=== PATIENT | female | born 1955 | race Caucasian/White ===

== ENCOUNTER 2021-08-26 08:15 | Outpatient (CLI) | payer MEDICARE, MEDICAID, SELFPAY ==
--- NOTE | ~2021-08-26 | MM_ITS ---
EXAMINATION: MM screening lois BI w kristen HISTORY: Screening TECHNIQUE: Craniocaudal and mediolateral oblique 3-D tomosynthesis images were obtained and synthetic 2-D images were generated. CAD analysis was submitted and interpreted. COMPARISON: No prior mammogram is available for comparison at this institution. BREAST PARENCHYMAL COMPOSITION: There are scattered areas of fibroglandular density. FINDINGS: There is no evidence of suspicious mass, calcification, or architectural distortion to sugg est malignancy in either breast. There has been no suspicious interval change. IMPRESSION: 1. No mammographic evidence of malignancy. 2. Recommend routine screening mammography in one year. BI-RADS Category 1: Negative Reviewed, dictated and finalized at location A. SCRAPER
== END 2021-08-26 08:16 | disposition home or self-care (01) ==
LOC: CHSIMG 08:19
PROVIDERS: PCP Family Medicine; Visit Provider Family Medicine
DX: Z12.31 Encounter for screening mammogram for malignant neoplasm of breast (principal)
CPT/HCPCS: 77063; 77067

== ENCOUNTER 2021-10-01 09:48 | Outpatient (CLI) | payer MEDICARE, MEDICAID, SELFPAY ==
--- NOTE | ~2021-10-01 | CT_ITS ---
EXAMINATION: CT diagnostic chest wo con DATE: 10/01/2021 10:10 INDICATION: Chronic cough, history of lung cancer TECHNIQUE: Computed tomography (CT) of the chest was performed without intravenous contrast. The dose -length product (DLP) was 125.41 mGy-cm. Automated exposure control and iterative reconstruction tech nique were employed. COMPARISON: None FINDINGS: There is volume loss in the right lung. There is confluent perihilar opacification and bron chiectasis in the right lung, most extensive in the middle and lower lobes. An approximately 2.3 cm g roundglass nodule peripheral aspect of the right lower lobe on image 83 demonstrates a 5 mm internal solid component. There are additional groundglass nodules without solid components are seen throughou t the right lung. There is no pleural effusion or pneumothorax. The heart size is normal. There is mo derate thoracic spondylosis. There is a 13 mm cyst of the right hepatic lobe. Healed bilateral drill operator pneumatic ior rib fractures are noted. IMPRESSION: 1. Confluent perihilar opacification and bronchiectasis in the right lung, consistent with malignancy and treatment change. 2. Groundglass nodules of the right lung, one of which demonstrates a 5 mm solid component. Findings may reflect infection/inflammation however malignancy could have a similar appearance. Comparison wit h outside hospital imaging (presumed to be available given treatment for lung cancer) would be most b eneficial. In the absence of available prior imaging, follow-up CT in 3-6 months would be recommended . Reviewed, dictated and finalized at location B. IMPRESSION: 1. Confluent perihilar opacification and bronchiectasis in the right lung, cons istent with malignancy and treatment change. 2. Groundglass nodules of the right lung, one of which demonstrates a 5 mm audrey d component. Findings may reflect infection/inflammation however malignancy cou ld have a similar appearance. Comparison with outside hospital imaging (presume d to be available given treatment for lung cancer) would be most beneficial. In the absence of available prior imaging, follow-up CT in 3-6 months would be re commended.
== END 2021-10-01 09:49 | disposition home or self-care (01) ==
LOC: CHSIMG 09:50
PROVIDERS: PCP Family Medicine; Visit Provider Family Medicine
DX: R05.3 Chronic cough (principal)
CPT/HCPCS: 71250

== ENCOUNTER 2021-10-15 00:53 | Day surgery (SDC) | payer MEDICARE, MEDICAID, SELFPAY ==
[2021-10-07 10:27] VITALS: BMI 20.6
--- NOTE | 2021-10-07 10:45 | PC.NURSE ---
Report to the Outpatient Waiting Room, entrance under the green pavilion located off [facility], at time ___0615____ on date ___10/15/21____. OR Time: __0815 . - You and your visitor will be asked a series of questions to screen for COVID 19 for your protection. - A mask is required within the hospital. Preoperative COVID Testing Requirements: NONE No COVID Test needed if: (proof is required; if not received patient will have Rapid Test prior to entry) - Patient has received COVID Vaccine at least 14 days prior to procedure date or - Patient has positive COVID test result within last 90 days of surgery date. COVID Test needed if above criteria is not met If not COVID vaccinated a COVID test must be conducted within 72 hours of surgery and patient is asked to isolate self from time of testing until procedure. You will go to the [facility] for your COVID testing. The [facility] site is located at the corner of [address] [facility]. You will only be called if COVID results are positive and your surgeon may reschedule your elective surgery date. Patients may have clear liquids (water, carbonated beverages, clear teas, apple juice) until 3 hours prior to surgery (0515 AM) with a maximum of 20 ounces. - No food from midnight until time of surgery - Infants may have breast milk until 4 hours before surgery, formula 6 hours prior to surgery. - Children will be allowed to drink immediately following surgery. If applicable, please bring a bottle or sippy cup to assist with drinking. Juice, water, soda, and popsicles are readily available. For infants on formula, please bring formula the day of surgery. Pacifiers are allowed. Take the following medications with a SIP of water the morning of surgery: _ALPRAZOLAM, AMLODIPINE, INHALER, PAIN PILL IF NEEDED_ Medications to discontinue__ALL VITAMINS PER ANESTHESIA 3 DAYS PRIOR TO SURGERY, Date to take last dose_10/11/21_ Please no make-up, nail pashto, hairspray, perfume, deodorant, or body powder the day of surgery. No jewelry (including any body piercings) or valuables the day of surgery, leave them at home. Please take a shower or bath the night before, or the morning of, surgery with an antibacterial soap. Wear comfortable, loose fitting clothing. Children are encouraged to wear pajamas. - Jewelry must be removed prior to entering the operating room. Rings and piercings that are not removed may be cut off. - The hospital will not accept responsibility for valuables. - Please leave all valuables, including medications, at home the day of surgery. If you are going home after surgery, a licensed auto crane driver must drive you home. - NO public transportation without another adult. - We recommend that an adult stay with you for 24 hours following discharge. - We also recommend that you do not drive, make important decision, drink alcoholic beverages, or take any drugs that were not prescribed by your health care provider for at least 24 hours after your discharge time. For Pediatric surgeries, we recommend two adults accompany the child home (only one inside the building at this time). One visitor will be allowed to accompany the patient into the hospital. Patients visitor will be instructed to remain with patient at all times or leave the building. We will allow the visitor to come back to the postoperative area when patient is ready. Follow any additional instructions given to you from your surgeon. Telephone instructions given to ___PT and asked if any additional questions and then verbalized understanding. Patient advised to call surgeon office or pre surgery nurse liaison [phone] if any additional questions.
--- NOTE | 2021-10-15 07:08 | WPDHPUPDATE1 ---
History and Physical Update Update Date/Time: 10/15/21 07:08 History and Physical has been reviewed, including an updated exam of the patient. There are NO changes in the patient's condition. Risks, benefits, and alternatives have been discussed and questions answered. Patient agrees to proceed with procedure.
[2021-10-15 07:21] VITALS: BP 111/60; PULSE 89; RESP 18; TEMP 36.3; O2SAT 98
--- NOTE | 2021-10-15 07:57 | P.PNAN_ITS ---
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 Patient Data Age: 66 Gender: F Height: 1.63 m Weight: 55 kg Last Vital Signs Temp 36.3 C L 10/15/21 07:21 Pulse 89 10/15/21 07:21 Resp 18 10/15/21 07:21 BP 111/60 10/15/21 07:21 Pulse Ox 98 10/15/21 07:21 Allergies Allergy/AdvReac Type Severity Reaction Status Date / Time adhesive tape AdvReac SKIN Verified 10/07/21 10:52 IRRITATION Home Medications Medication Instructions Recorded Confirmed Type albuterol sulfate See Rx Instructions .ROUTE .COMPLEX 10/07/21 10/15/21 History alprazolam 0.5 mg TID 10/07/21 10/15/21 History amlodipine 5 mg QAM 10/07/21 10/15/21 History atorvastatin 40 mg QAM 10/07/21 10/15/21 History calcium carbonate-vitamin D3 1 tablet PO DAILY 10/07/21 10/15/21 History [Calcium + D] famotidine 20 mg HS 10/07/21 10/15/21 History agvotgqtmgb-ufkopllmf-fvqcugyh 1 ea INHALATION DAILY 10/07/21 10/15/21 History [Trelegy Ellipta] oxycodone 5 mg PO Q4H PRN 10/07/21 10/07/21 History pantoprazole 40 mg PO DAILY 10/07/21 10/15/21 History potassium 99 mg DAILY 10/07/21 10/15/21 History Patient hx anesthesia problems: none Family hx anesthesia problems: none Results Review: All pre-operative results and documents have been reviewed as part of the pre-operative evaluation. [facility] Past Medical History Medical History (Updated 10/15/21 @ 08:00 by Eulalio Vallecillo MD) COPD (chronic obstructive pulmonary disease) Lung cancer Skin cancer Surgical History Surgical History (Updated 10/15/21 @ 08:00 by Eulalio Vallecillo MD) H/O: hysterectomy Social History Social History Tobacco type: cigarettes and e-cigarettes/vaping Additional smoking assessment comments: STATES 1PK/WEEK/SINCE AGE 11 Alcohol intake: current Alcohol use details: STATES VERY RARELY - COUPLE TIMES /6 MONTHS Substance use: never Substance use type: does not use Spiritual care concerns: No Anes - Eval Final PreProcedure Day of Procedure 10/15/21 07:57 Patient weight: normal Heart: regular rate and rhythm Lungs: clear to auscultation Airway: Mallampati scale class II Neurological: alert and oriented Last oral intake: >/= 8 hours ASA classification: III Emergent: no Anesthetic plan: proceed Anesthesia type and monitoring: general GIVS and standard monitoring Results Review: All pre-operative results and documents have been reviewed as part of the pre-operative evaluation. Informed Consent: The patient's anesthetic plan and its attendant risks and benefits were discussed with the patient/family/POA. Questions were solicited and answers provided to the satisfaction of the patient/family/POA.
[2021-10-15] MEDS: LACTATED RINGERS 1,000 ML 30 ML IV CONT (08:07)
[2021-10-15] MEDS: LIDO 1%/EPINEPHRINE/PF 1:200,000 30 ML VIAL XX (08:39)
--- NOTE | 2021-10-15 08:43 | SUR.OPER ---
Frozen section specimen sent with pat Muro and received in pathology by Colleen
[2021-10-15 09:21] VITALS: BP 89/53; PULSE 94; RESP 15; O2SAT 97
[2021-10-15 09:30] VITALS: BP 101/59; PULSE 89; RESP 16; O2SAT 95
--- NOTE | 2021-10-15 09:38 | P.OP_ITS ---
Procedure Note - Detailed Date of Procedure 10/15/21 Pre-op Diagnosis ulcerated neoplasm uncert behavior right eyebrow Post-op Diagnosis Same Procedure Performed 1. 5 cm excision of keratotic mass of the right eyebrow with frozen section and intermediate repair 3 cm Surgeon Edgar Malloy MD Residential Roofer Helper Peter Anesthesia MAC Findings Pathology deferred for permanent sections Description of Procedure The firm dark palpable mass on the right eyebrow was marked in the holding area. The patient was taken to the operating room and placed supine on the operating table. Time-out was held and confirmed She was given IV sedation. The face was prepped and draped usual fashion. The site was carefully marked for excision and infiltrated with 1% lidocaine with epinephrine. The full- thickness skin ellipse was taken out within the eyebrow. The most superior aspect was marked with suture for 12:00 o'clock.. The pathologist a turbid this tissue as showing no neoplasm. He was not able to clearly state that this was even actinic keratosis. I informed him there was a prior biopsy. He will defer to permanent section. The wound edges were undermined proximally 5 mm and the anatomical margins of the eyebrow were brought together with 4-0 intradermal Vicryl. The resulting superior dog ear was laid out for excision and closure in about a 45 degree angle and the wound closed with an additional Vicryl and running 5 0 nylon. The inferior dog ear on the upper lid aspect was insignificant. Patient tolerated the procedure well was discharged from the operating room stable condition Estimated Blood Loss 1 Drains No Packing No Pathology Yes Complications No immediate complications Condition Stable Disposition Same day
[2021-10-15] MEDS: ACETAMINOPHEN 500 MG TABLET PO (09:47)
[2021-10-15 09:51] VITALS: BP 119/69; PULSE 90; RESP 16; O2SAT 97
[2021-10-15] MEDS: ARTIFICIAL TEARS OPHTH SOLN 15 ML BOTTLE 1 DROP EACH EYE (09:52)
[2021-10-15] MEDS: PROPARACAINE HCL 0.5% 15 ML OPHTH SOLN 1 DROP EACH EYE (09:54)
[2021-10-15] MEDS: DICLOFENAC SODIUM 0.1% OPHTH SOLN 2.5 ML BOTTLE 1 DROP EACH EYE (10:06)
--- NOTE | 2021-10-15 10:38 | SUR.PHASEII ---
PT ARRIVED TO OUTPATIENT RUBBING HER RIGHT EYE A REDDENED RIGHT EYE CONJUNCTIVA WAS NOTED. THIS NURSE SPOKE WITH LISANDRO HARRISON AND HE SAID TO START THE CORNEA ABRASION PROTOCOL AND GIVE HER THE EYE DROPS. PT SAID SHE HAD IMPROVEMENT WITH PAIN AND ITCHING AFTER EYE DROPS WERE GIVEN.
== END 2021-10-15 10:20 | disposition home or self-care (01) ==
PROVIDERS: PCP Family Medicine; Visit Provider Plastic Surgery
PROC: (CPT 11442; principal; 2021-10-15 08:15)
DX: L57.0 Actinic keratosis (principal); J44.9 Chronic obstructive pulmonary disease, unspecified; Z85.118 Personal history of other malignant neoplasm of bronchus and lung; F17.210 Nicotine dependence, cigarettes, uncomplicated; F17.290 Nicotine dependence, other tobacco product, uncomplicated; Z79.51 Long term (current) use of inhaled steroids
CPT/HCPCS: 11442; 12052; 88305; 88331; A9270; J1100; J2250; J2405; J2704; J3010; J7120

== ENCOUNTER 2021-10-31 14:40 | Outpatient (CLI) | payer MEDICARE, SELFPAY ==
[2021-10-31 14:56] LABS: Basophils Absolute Auto 0.07 K/mm3 (0.00-0.10); Basophils Percent Auto 1.2 % (0.0-1.0); Eosinophils Absolute Auto 0.45 K/mm3 (0.02-0.50); Eosinophils Percent Auto 7.6 % (1.0-6.0); Hematocrit 38.3 % (35.0-42.0); Hemoglobin 12.9 g/dL (11.7-13.8); Immature Granulocyte Absolute 0.04 K/mm3 (0.00-0.00); Immature Granulocyte Percent A 0.7 % (0.0-0.0); Lymphocytes Absolute Auto 1.22 K/mm3 (1.10-4.50); Lymphocytes Percent Auto 20.5 % (18.0-42.0); Mean Corpuscular HGB Conc 33.7 g/dL (32.0-36.0); Mean Corpuscular Hemoglobin 31.2 pg (27.0-31.0); Mean Corpuscular Volume 92.7 fL (78.0-102.0); Mean Platelet Volume 8.8 fl (9.2-11.8); Monocytes Absolute Auto 0.56 K/mm3 (0.10-0.90); Monocytes Percent Auto 9.4 % (2.0-11.0); Neutrophils Absolute Auto 3.6 K/mm3 (1.7-7.2); Neutrophils Percent Auto 60.6 % (50.0-70.0); Platelet Count Result 312 K/mm3 (150-420); Red Blood Count 4.13 M/mm3 (4.20-5.40); Red Cell Distribution Width 12.8 % (11.6-14.4)
[2021-10-31 15:09] LABS: Hemoglobin A1C 5.4 % (<5.7)
[2021-10-31 15:48] LABS: Alanine Aminotransferase 24 U/L (14-59); Albumin Level 3.6 g/dL (3.4-5.0); Alkaline Phosphatase 138 U/L (46-116); Anion Gap 9 mmol/L (8-16); Aspartate Amino Transferase 26 U/L (15-37); Bilirubin,Total 0.6 mg/dL (0.00-1.00); Blood Urea Nitrogen 16 mg/dL (7-18); Calcium 9.5 mg/dL (8.5-10.1); Carbon Dioxide 27 mmol/L (21-32); Chloride 98 mmol/L (98-108); Estimated Glomerular Filt Rate 57; Glucose 86 mg/dL (70-99); Osmolality Calculated 278 mOsm/kg (285-295); Potassium 4.1 mmol/L (3.5-5.1); Sodium 134 mmol/L (136-145); Total Protein 6.8 g/dL (6.4-8.2)
[2021-10-31 16:16] LABS: Thyroid Stimulating Hormone Reflex 2.16 u/IU/mL (0.36-3.74)
[2021-11-04 15:08] LABS: Cortisol Random 8.4 mcg/dL (***)
== END 2021-10-31 14:41 | disposition home or self-care (01) ==
LOC: CHSLAB 14:43
PROVIDERS: PCP Family Medicine; Visit Provider Internal Medicine Hematology & Oncology
DX: C34.90 Malignant neoplasm of unspecified part of unspecified bronchus or lung (principal); R73.9 Hyperglycemia, unspecified; E06.9 Thyroiditis, unspecified
CPT/HCPCS: 36415; 80053; 82533; 83036; 84443; 85025

== ENCOUNTER 2022-03-04 17:18 | Outpatient (CLI) | payer OTHER, SELFPAY ==
[2022-03-04 17:36] LABS: Basophils Absolute Auto 0.05 K/mm3 (0.00-0.10); Basophils Percent Auto 0.6 % (0.0-1.0); Eosinophils Absolute Auto 0.39 K/mm3 (0.02-0.50); Hematocrit 38.1 % (35.0-42.0); Immature Granulocyte Absolute 0.03 K/mm3 (0.00-0.00); Immature Granulocyte Percent A 0.4 % (0.0-0.0); Lymphocytes Absolute Auto 1.41 K/mm3 (1.10-4.50); Lymphocytes Percent Auto 18.2 % (18.0-42.0); Mean Corpuscular HGB Conc 34.1 g/dL (32.0-36.0); Mean Corpuscular Hemoglobin 31.1 pg (27.0-31.0); Mean Corpuscular Volume 91.1 fL (78.0-102.0); Mean Platelet Volume 8.8 fl (9.2-11.8); Monocytes Absolute Auto 0.88 K/mm3 (0.10-0.90); Monocytes Percent Auto 11.4 % (2.0-11.0); Neutrophils Percent Auto 64.4 % (50.0-70.0); Platelet Count Result 304 K/mm3 (150-420); Red Blood Count 4.18 M/mm3 (4.20-5.40); Red Cell Distribution Width 12.5 % (11.6-14.4); White Blood Count 7.8 K/mm3 (4.8-10.8)
[2022-03-04 17:58] LABS: Alanine Aminotransferase 26 U/L (14-59); Albumin Level 3.7 g/dL (3.4-5.0); Alkaline Phosphatase 128 U/L (46-116); Anion Gap 7 mmol/L (8-16); Aspartate Amino Transferase 19 U/L (15-37); Bilirubin,Total 0.7 mg/dL (0.00-1.00); Blood Urea Nitrogen 11 mg/dL (7-18); Calcium 9.6 mg/dL (8.5-10.1); Carbon Dioxide 27 mmol/L (21-32); Chloride 96 mmol/L (98-108); Estimated Glomerular Filt Rate > 60; Glucose 94 mg/dL (70-99); Osmolality Calculated 269 mOsm/kg (285-295); Potassium 3.8 mmol/L (3.5-5.1); Sodium 130 mmol/L (136-145); Total Protein 7.4 g/dL (6.4-8.2)
== END 2022-03-04 17:19 | disposition home or self-care (01) ==
PROVIDERS: PCP Family Medicine; Visit Provider Internal Medicine Hematology & Oncology
DX: C34.90 Malignant neoplasm of unspecified part of unspecified bronchus or lung (principal)
CPT/HCPCS: 36415; 80053; 85025

== ENCOUNTER 2022-05-01 08:13 | Outpatient (CLI) | payer OTHER, SELFPAY ==
[2022-05-01 09:00] VITALS: PULSE 109; O2SAT 97
[2022-05-01 09:06] VITALS: PULSE 124; O2SAT 99
--- NOTE | 2022-05-01 14:07 | RCSIXMIN ---
Six Minute Walk RC: Six Minute Walk Start: 05/01/22 09:37 Freq: Status: Active Protocol: Activity Type Activity Date Activity User E-sign Co-sign Detail Recorded Client Recorded Date Recorded By Document 05/01/22 09:00 WILFREDO [id number] 05/01/22 09:43 KACherie Document 05/01/22 09:06 WILFREDO [id number] 05/01/22 09:43 KAB 05/01/22 05/01/22 09:00 09:06 Six Minute Walk Test Phase Resting Exercise Oxygen Delivery Room Air Room Air Pulse Oximetry (90-100 %) 97 99 Pulse Rate (60-100 beats/min) 109 H 124 H Activity Tolerance Excellent Excellent Rating of Perceived Dyspnea (PD) +3 Moderate Difficulty, But Can Continue Ambulation Distance (feet) 510 Ambulation Distance (meters) 155.44 Six Minute Walk Comments Will Begin walk Pt walked about . 510 feet. Spo2 remained high. Heart increased. Charge Six Minute Walk
--- NOTE | 2022-05-12 14:30 | WPDPFTINT ---
PFT Procedure Performed PFT Procedure Performed Spirometry with Pre/Post Bronchodilator Plethysmography (Lung Vol) Flow Vol Loop PFT Interpretation DOS: 05/01/2022 REQUESTING: Dr Gamaliel Pires REASON FOR TESTING: COPD, smoking, history of lung cancer PULMONARY FUNCTION TESTS Results are reliable and reproducible. Spirometry: Pre bronchodilator FEV1 is 3.15 L, 114%. Pre bronchodilator FEV1 is 1.64 L, 83%. The FEV1 /FVC is 59%, reduced and this is consistent with airflow obstruction. After bronchodilator there is a 3% increase in the FEV1 and a 3% decrease in the FVC. These are insignificant changes. The WFP35-95% is 0.67 L, 28% predicted and this increases by 27%, almost 200 ml. Lung volumes: Total lung capacity is 4.71 L, 97% predicted, normal. Residual volume 1.55 L, 82%. Normal. RV/TLC is 33% normal. Airway resistance 138%. Diffusion: DLCO was not reported. Flow volume loop: There is coving of the expiratory limb. IMPRESSION: This study shows a mild obstructive ventilatory impairment which is severe in the small airways. Normal lung volumes. Diffusion was not performed. Lack of response to bronchodilator should not preclude use if clinically indicated. No prior studies for comparison. Mallika Marks MD
== END 2022-05-01 08:14 | disposition home or self-care (01) ==
LOC: CHSCARD 08:17
PROVIDERS: PCP Family Medicine; Visit Provider Physician Assistant
DX: R06.02 Shortness of breath (principal)
CPT/HCPCS: 94060; 94618; 94726

== ENCOUNTER 2022-11-17 08:00 | Outpatient (CLI) | payer MEDICARE, MEDICAID, SELFPAY ==
--- NOTE | ~2022-11-17 | CT_ITS ---
Clinical Indication: Lung cancer CT Scan of the Chest, Abdomen, and Pelvis with Contrast: Technique: Contiguous sections were acquired throughout the chest, abdomen, and pelvis after intraven ous administration of 100 cc of Omnipaque 350. Dose reduction technique was used on this scan by ze hernandezing automated exposure control and iterative reconstruction technique. The dose-length product (DL P) was 426.65 mGy-cm. COMPARISON: 10/01/2021 Findings: There is no evidence of any significant mediastinal, hilar or axillary lymphadenopathy. The mediastin al soft tissues appear normal. There is no evidence of pleural or pericardial effusion. There is stable irregular consolidation and bronchiectatic change at the right infrahilar region exte nding to the right lower lobe. There is probable focal scarring in the right middle lobe. Small right hepatic lobe cyst present. The spleen, pancreas, gallbladder, and adrenal glands are with in normal limits. Renal cysts and right renal parenchymal scarring are noted. No evidence of aortic a neurysm. No lymphadenopathy. No bowel obstruction or bowel wall thickening. There is no evidence to suggest acute appendicitis. Urinary bladder is unremarkable. Patient is post hysterectomy. No pelvic mass seen. No ascites. Impression: Chronic irregular consolidation and bronchiectatic change predominantly in the right infrahilar regio n extending to the right lower lobe. This probably represents treated malignancy and additional post therapy change. Recurrent/residual active malignancy is difficult to completely exclude, but there is no significant imaging change since prior exam. Small peripheral groundglass opacities seen on prior exam are improved/resolved. Reviewed, dictated and finalized at [facility]. Impression: Chronic irregular consolidation and bronchiectatic change predominantly in the right infrahilar region extending to the right lower lobe. This probably repres ents treated malignancy and additional post therapy change. Recurrent/residual active malignancy is difficult to completely exclude, but there is no significa nt imaging change since prior exam. Small peripheral groundglass opacities seen on prior exam are improved/resolved .
[2022-11-17 08:30] LABS: Estimated Glomerular Filt Rate 59
== END 2022-11-17 08:01 | disposition home or self-care (01) ==
LOC: CHSIMG 08:04
PROVIDERS: PCP Family Medicine; Visit Provider Internal Medicine Hematology & Oncology
DX: C34.90 Malignant neoplasm of unspecified part of unspecified bronchus or lung (principal); R91.8 Other nonspecific abnormal finding of lung field
CPT/HCPCS: 71260; 74177; Q9967

== ENCOUNTER 2022-12-01 14:23 | Outpatient (CLI) | payer MEDICARE, MEDICAID, SELFPAY ==
[2022-12-01 14:49] LABS: Basophils Absolute Auto 0.06 K/mm3 (0.00-0.10); Basophils Percent Auto 0.7 % (0.0-1.0); Eosinophils Absolute Auto 0.31 K/mm3 (0.02-0.50); Eosinophils Percent Auto 3.8 % (1.0-6.0); Hematocrit 42.8 % (35.0-42.0); Hemoglobin 14.1 g/dL (11.7-13.8); Immature Granulocyte Absolute 0.04 K/mm3 (0.00-0.00); Immature Granulocyte Percent A 0.5 % (0.0-0.0); Lymphocytes Absolute Auto 1.97 K/mm3 (1.10-4.50); Lymphocytes Percent Auto 24.1 % (18.0-42.0); Mean Corpuscular HGB Conc 32.9 g/dL (32.0-36.0); Mean Corpuscular Hemoglobin 29.6 pg (27.0-31.0); Mean Corpuscular Volume 89.7 fL (78.0-102.0); Mean Platelet Volume 9.3 fl (9.2-11.8); Monocytes Absolute Auto 0.56 K/mm3 (0.10-0.90); Monocytes Percent Auto 6.8 % (2.0-11.0); Neutrophils Absolute Auto 5.2 K/mm3 (1.7-7.2); Neutrophils Percent Auto 64.1 % (50.0-70.0); Platelet Count Result 296 K/mm3 (150-420); Red Blood Count 4.77 M/mm3 (4.20-5.40); Red Cell Distribution Width 13.6 % (11.6-14.4); White Blood Count 8.2 K/mm3 (4.8-10.8)
[2022-12-01 15:39] LABS: Alanine Aminotransferase 41 U/L (14-59); Albumin Level 4.4 g/dL (3.4-5.0); Alkaline Phosphatase 165 U/L (46-116); Anion Gap 11 mmol/L (8-16); Aspartate Amino Transferase 28 U/L (15-37); Bilirubin,Total 0.5 mg/dL (0.00-1.00); Blood Urea Nitrogen 20 mg/dL (7-18); Calcium 10.2 mg/dL (8.5-10.1); Carbon Dioxide 27 mmol/L (21-32); Chloride 102 mmol/L (98-108); Estimated Glomerular Filt Rate 37; Glucose 88 mg/dL (70-99); Osmolality Calculated 291 mOsm/kg (285-295); Potassium 4.3 mmol/L (3.5-5.1); Sodium 140 mmol/L (136-145); Total Protein 7.2 g/dL (6.4-8.2)
== END 2022-12-01 14:24 | disposition home or self-care (01) ==
LOC: CHSLAB 14:29
PROVIDERS: PCP Family Medicine; Visit Provider Internal Medicine Hematology & Oncology
DX: C34.90 Malignant neoplasm of unspecified part of unspecified bronchus or lung (principal)
CPT/HCPCS: 36415; 80053; 85025

== ENCOUNTER 2023-03-04 10:39 | Outpatient (CLI) | payer MEDICARE, MEDICAID, SELFPAY ==
[2023-03-04 10:53] LABS: Basophils Absolute Auto 0.08 K/mm3 (0.00-0.10); Basophils Percent Auto 1.2 % (0.0-1.0); Eosinophils Absolute Auto 0.24 K/mm3 (0.02-0.50); Eosinophils Percent Auto 3.7 % (1.0-6.0); Hematocrit 40.8 % (35.0-42.0); Hemoglobin 13.3 g/dL (11.7-13.8); Immature Granulocyte Absolute 0.03 K/mm3 (0.00-0.00); Immature Granulocyte Percent A 0.5 % (0.0-0.0); Lymphocytes Absolute Auto 1.85 K/mm3 (1.10-4.50); Lymphocytes Percent Auto 28.4 % (18.0-42.0); Mean Corpuscular HGB Conc 32.6 g/dL (32.0-36.0); Mean Corpuscular Hemoglobin 29.3 pg (27.0-31.0); Mean Corpuscular Volume 89.9 fL (78.0-102.0); Monocytes Absolute Auto 0.39 K/mm3 (0.10-0.90); Neutrophils Absolute Auto 3.9 K/mm3 (1.7-7.2); Neutrophils Percent Auto 60.2 % (50.0-70.0); Platelet Count Result 361 K/mm3 (150-420); Red Blood Count 4.54 M/mm3 (4.20-5.40); Red Cell Distribution Width 13.7 % (11.6-14.4); White Blood Count 6.5 K/mm3 (4.8-10.8)
[2023-03-04 12:10] LABS: Anion Gap 9 mmol/L (8-16); Blood Urea Nitrogen 17 mg/dL (7-18); Carbon Dioxide 28 mmol/L (21-32); Chloride 104 mmol/L (98-108); Potassium 4.6 mmol/L (3.5-5.1); Sodium 141 mmol/L (136-145)
[2023-03-04 12:11] LABS: Alanine Aminotransferase 24 U/L (14-59); Albumin Level 3.8 g/dL (3.4-5.0); Alkaline Phosphatase 155 U/L (46-116); Aspartate Amino Transferase 21 U/L (15-37); Bilirubin,Total 0.3 mg/dL (0.00-1.00); Calcium 9.9 mg/dL (8.5-10.1); Estimated Glomerular Filt Rate > 60; Glucose 79 mg/dL (70-99); Osmolality Calculated 292 mOsm/kg (285-295); Total Protein 6.8 g/dL (6.4-8.2)
== END 2023-03-04 10:40 | disposition home or self-care (01) ==
LOC: CHSLAB 10:43
PROVIDERS: PCP Family Medicine; Visit Provider Internal Medicine Hematology & Oncology
DX: C34.90 Malignant neoplasm of unspecified part of unspecified bronchus or lung (principal)
CPT/HCPCS: 36415; 80053; 85025

== ENCOUNTER 2023-06-07 12:57 | Outpatient (CLI) | payer MEDICARE, MEDICAID, SELFPAY ==
--- NOTE | ~2023-06-07 | MM_ITS ---
EXAMINATION: MM screening lois BI w kristen HISTORY: Screening mammogram TECHNIQUE: Craniocaudal and mediolateral oblique 3-D tomosynthesis images were obtained and synthetic 2-D images were generated. CAD analysis was submitted and interpreted. COMPARISON: August 26, 2021 bilateral screening mammogram BREAST PARENCHYMAL COMPOSITION: The breasts are almost entirely fatty. FINDINGS: There is no evidence of suspicious mass, calcification, or architectural distortion to sugg est malignancy in either breast. There has been no suspicious interval change. IMPRESSION: 1. No mammographic evidence of malignancy. 2. Recommend routine screening mammography in one year. BI-RADS Category 1: Negative Reviewed, dictated and finalized at location A. YSTEMS ENGINEER
== END 2023-06-07 12:58 | disposition home or self-care (01) ==
LOC: CHSIMG 12:58
PROVIDERS: PCP Family Medicine; Visit Provider Family Medicine
DX: Z12.31 Encounter for screening mammogram for malignant neoplasm of breast (principal)
CPT/HCPCS: 77063; 77067

== ENCOUNTER 2023-06-25 13:34 | Outpatient (CLI) | payer MEDICARE, MEDICAID, SELFPAY ==
--- NOTE | ~2023-06-25 | CT_ITS ---
EXAMINATION: CT diagnostic chest w con DATE: 06/25/2023 14:29 INDICATION: Lung cancer TECHNIQUE: Transaxial computed tomographic images of the chest were obtained after the administration of 75 cc of Omnipaque 350 intravenous contrast. The dose-length product (DLP) was 128.36 mGy-cm. Ite rative reconstruction was used. COMPARISON: 11/17/2022 FINDINGS: There are bronchiectasis and confluent airspace opacities of the right lung, particularly i n the middle and lower lobes. There is a 2.0 cm pleural-based nodule located posteriorly in the right upper lobe which has increased in size. There is volume loss in the right lung. The left lung demons trates mild atelectasis. No pleural effusion or pneumothorax. The heart size is normal. There is mode rate thoracic spondylosis. There is a 10 mm cyst of the right hepatic lobe. IMPRESSION: 1. Enlarging pleural-based nodule in the right upper lobe which could reflect round atelectasis, aj gnancy, or infection/inflammation. Recommend three-month follow-up CT, biopsy, or PET/CT. 2. Stable right middle and lower lobe predominant confluent opacification and bronchiectasis, consist ent with treatment change. Reviewed, dictated and finalized at location B. COMMUNICATIONS INSTRUCTOR IMPRESSION: 1. Enlarging pleural-based nodule in the right upper lobe which could reflect r ound atelectasis, malignancy, or infection/inflammation. Recommend three-month follow-up CT, biopsy, or PET/CT. 2. Stable right middle and lower lobe predominant confluent opacification and b ronchiectasis, consistent with treatment change.
[2023-06-25 14:04] LABS: Estimated Glomerular Filt Rate 56
== END 2023-06-25 13:35 | disposition home or self-care (01) ==
LOC: CHSIMG 13:37
PROVIDERS: PCP Family Medicine; Visit Provider Internal Medicine Hematology & Oncology
DX: C34.90 Malignant neoplasm of unspecified part of unspecified bronchus or lung (principal); R91.1 Solitary pulmonary nodule; J47.9 Bronchiectasis, uncomplicated
CPT/HCPCS: 71260; Q9967

== ENCOUNTER 2023-07-20 11:47 | Outpatient (CLI) | payer MEDICARE, MEDICAID, SELFPAY ==
--- NOTE | ~2023-07-20 | PE_ITS ---
EXAMINATION: PET skull to mid thigh DATE: 07/20/2023 16:09 INDICATION: Lung adenocarcinoma. TECHNIQUE: Blood glucose level was 84 mg/dL. 10.885 mCi of 18-fluorodeoxyglucose (18-FDG) was adminis tered i.v. Low dose computed tomography (CT) images were acquired from the base of the brain to the p roximal thighs for attenuation correction and anatomic localization. Automated exposure control was e mployed. Dose-length product (DLP) was 559 mGy-cm. Positron emission tomography (PET) images were acq uired in the same distribution. COMPARISON: Chest CT 06/25/2023, 10/01/2021 FINDINGS: Head/neck: There are no pathologically enlarged lymph nodes. Chest: There are chronic airspace opacities with volume loss involving perihilar right lung, consiste nt with radiation fibrosis. In posterior right lung, there is a 2.7 cm nodule with maximum SUV of 7.4 . There are focal airspace opacities in left lung upper lobe with increased activity. There is mild a telectasis bilaterally. No pleural effusion. The heart size is normal. No pericardial effusion. Abdomen/pelvis/proximal thighs: There is a 13 mm cyst in the liver. The gallbladder, spleen, pancreas , and adrenal glands are normal. 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 There are cysts in the kidneys measuring up to 1.9 cm on the left. There are no dilated loops of bowel. There are no pathologically enlarged lymph nodes. There is no free intraperi toneal fluid. There is no osseous malignancy. IMPRESSION: 1. 2.7 cm nodule in right lung with increased activity, worsened from 1.3 cm on 11/17/2022. The differe ntial diagnosis includes pneumonia, radiation pneumonitis, and metastatic disease. 2. Focal subsegmental airspace opacities with increased activity in left lung upper lobe, consistent with pneumonia versus radiation pneumonitis. Reviewed, dictated and finalized at location A. BULATORY ANALYST IMPRESSION: 1. 2.7 cm nodule in right lung with increased activity, worsened from 1.3 cm on 11/17/2022. The differential diagnosis includes pneumonia, radiation pneumonitis , and metastatic disease. 2. Focal subsegmental airspace opacities with increased activity in left lung u pper lobe, consistent with pneumonia versus radiation pneumonitis.
[2023-07-20 12:19] LABS: Glucose Point of Care 84 mg/dl (65-105)
== END 2023-07-20 11:48 | disposition home or self-care (01) ==
LOC: ANHIMG 11:50
PROVIDERS: PCP Family Medicine; Visit Provider Internal Medicine Hematology
DX: C34.90 Malignant neoplasm of unspecified part of unspecified bronchus or lung (principal); R91.1 Solitary pulmonary nodule; R91.8 Other nonspecific abnormal finding of lung field
CPT/HCPCS: 78815; A9552

== ENCOUNTER 2023-08-10 11:46 | Outpatient (CLI) | payer MEDICARE, MEDICAID, SELFPAY ==
--- NOTE | ~2023-08-10 | MR_ITS ---
MRI of the brain Clinical History: Lung cancer, metastatic evaluation Technique: Axial and sagittal T1-weighted images were acquired. These were followed by axial T2-weigh hayley, diffusion weighted, gradient, and FLAIR images. Following intravenous administration of 11 cc Mu ltiHance gadolinium, T1-weighted fat-sat imaging was performed in the coronal planes. Findings: There is no acute infarct, intracranial hemorrhage, or mass lesion. There are mild chronic white matter changes in the periventricular white matter bilaterally. Ventricles and subarachnoid spaces are unremarkable. Orbits are unremarkable. Paranasal sinuses and m astoid air cells are clear. Major intracranial flow voids are intact. Sagittal midline structures are intact. No abnormal postcontrast enhancement identified. IMPRESSION: No evidence of intracranial metastasis. No acute abnormality seen. Mild chronic microvascular ischemic changes. Reviewed, dictated and finalized at [facility]. MANAGER SPECIALIST
== END 2023-08-10 11:47 | disposition home or self-care (01) ==
PROVIDERS: PCP Family Medicine; Visit Provider Internal Medicine Hematology
DX: C34.90 Malignant neoplasm of unspecified part of unspecified bronchus or lung (principal)
CPT/HCPCS: 70553; A9577

== ENCOUNTER 2023-08-24 05:38 | Outpatient (CLI) | payer MEDICARE, MEDICAID, SELFPAY ==
[2023-08-12 12:49] VITALS: BMI 22.3
--- NOTE | 2023-08-12 12:52 | PC.NURSE ---
Pre Radiology instructions Report to the outpatient [facility] on date 08/24/23 at time 0900 for procedure Time: 1100. YOU MAY BE MONITORED AT HOSPITAL FOR UP TO 4 HOURS AFTER YOUR PROCEDURE. A visitor will be allowed to accompany the patient into the hospital. You and your visitor will be asked to self-screen and do not enter if you have any COVID symptoms. A mask is OPTIONAL within the hospital. Patients are to have no food or drink 8 hours prior to procedure time Driving will be restricted after the procedure, you must have a person to drive you home. Labs will be drawn in preop area and once reviewed, you will be taken to radiology area for procedure. When the procedure is completed, you will be taken to outpatient where you will be monitored for several hours. You may have one visitor in this area. Other than holding anti-coagulants, patient may take other medication(s) as scheduled. (PT STATES SHE WAS TOLD TO ONLY TAKE HER BLOOD PRESSURE MEDICATION MORNING OF PROCEDURE, NO OTHER MEDICATIONS.) Prior to your appointment date patients are instructed to hold anti-coagulants after discussing with ordering provider to stop. If unable to discontinue anti-coagulants please notify radiologist. ? No aspirin or warfarin (Coumadin) for 7 days prior to the procedure. ? No clopidogrel (Plavix), ticagrelor (Brilinta), prasugrel (Effient) or dabigatran (Pradaxa) for 5 days prior to the procedure. ? No rivaroxaban (Xarelto), apixaban (Eliquis), dipyridamole (Aggrenox or Persantine) or cilostazol (Pletal) for 2 days prior to the procedure. Medications to discontinue per physician: N/A Date to take last dose: N/A Please leave all valuables, including medications, at home the day of procedure. The hospital will not accept responsibility for valuables. Wear comfortable, loose fitting clothing.? Follow any additional instructions given to you from ordering provider. Telephone instructions given to PT - HUNG CÁRDENAS and asked if any additional questions and then verbalized understanding. Patient advised to call scheduling provider office or registration scheduling [phone] if any additional questions.
[2023-08-24] VITALS (12 sets, daily range): BP systolic 111–147; BP diastolic 56–83; PULSE 69–100; RESP 16–18; TEMP 37.1; O2SAT 98–100; BMI 23.8
--- NOTE | ~2023-08-24 | XR_ITS ---
EXAMINATION: XR chest 1V DATE: 08/24/2023 11:46 INDICATION: Lung nodule status post cutaneous biopsy. TECHNIQUE: A single frontal view of the chest was obtained. COMPARISON: PET/CT 07/20/2023 FINDINGS: There are airspace opacities in right mid and lower lung zones. No pleural effusion. There is a small right pneumothorax. The heart size is normal. There are old healed right rib fractures. IMPRESSION: 1. Small right pneumothorax. 2. Airspace opacities in right mid and lower lung zones, likely predominantly radiation pneumonitis. Malignancy cannot be excluded. Reviewed, dictated and finalized at location A. ATTENDANT IMPRESSION: 1. Small right pneumothorax. 2. Airspace opacities in right mid and lower lung zones, likely predominantly r adiation pneumonitis. Malignancy cannot be excluded.
--- NOTE | ~2023-08-24 | XR_ITS ---
EXAMINATION: XR chest 1V portable DATE: 08/24/2023 14:42 INDICATION: Right lung mass status post percutaneous biopsy. TECHNIQUE: A single frontal view of the chest was obtained. COMPARISON: Chest single view at 12:26 PM FINDINGS: There is a small right pneumothorax with slight improvement. There are airspace opacities i n right mid and lower lung zones. No pleural effusion or. The heart size is normal. There are old hea led rib fractures. IMPRESSION: 1. Small right pneumothorax with slight improvement. 2. Airspace opacities in right mid and lower lung zones, likely predominantly radiation pneumonitis. Reviewed, dictated and finalized at location A. 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 Small right pneumothorax with slight improvement. 2. Airspace opacities in right mid and lower lung zones, likely predominantly r adiation pneumonitis.
--- NOTE | ~2023-08-24 | XR_ITS ---
EXAMINATION: XR chest 1V portable DATE: 08/24/2023 12:41 INDICATION: Right lung mass status post retains biopsy. TECHNIQUE: A single frontal view of the chest was obtained. COMPARISON: Chest single view at 11:42 AM FINDINGS: There is a small right pleural pneumothorax. There are airspace opacities in right mid and lower lung zones. No pleural effusion or pneumothorax. The heart size is normal. There are old healed rib fractures. IMPRESSION: 1. Small right pneumothorax with slight worsening. 2. Airspace opacities in right mid and lower lung zones, likely predominantly radiation pneumonitis. Reviewed, dictated and finalized at location A. [employer] TE[employer]ER IMPRESSION: 1. Small right pneumothorax with slight worsening. 2. Airspace opacities in right mid and lower lung zones, likely predominantly r adiation pneumonitis.
--- NOTE | ~2023-08-24 | CT_ITS ---
EXAMINATION: CT biopsy lung w/imaging DATE: 08/24/2023 11:46 INDICATION: Right lung mass. TECHNIQUE: The procedure including the risks, benefits, and alternatives and possibility of chest tub e placement were discussed with the patient. Risks discussed included infection, hemorrhage, approxim ately 1/3 risk of pneumothorax, approximately 1/10 risk of pneumothorax severe enough to warrant ches t tube placement, and rarely . The patient understood the risks and agreed to proceed. The patie nt was placed prone. The skin overlying the right lung was prepped and draped in sterile fashion. A nesthetic was administered with 1% lidocaine subcutaneously. A 19 gauge outer needle was advanced un yandel CT guidance to the lesion of interest. A 20 gauge core biopsy needle was then used to obtain 3 co re biopsy specimens. The needle was removed and the entry site was cleaned and dressed. The mA was ad justed according to patient size. Iterative reconstruction technique was employed. The dose-length pr oduct was 120.85 mGy-cm. There were no immediate complications. FINDINGS: CT images demonstrate the outer needle tip adjacent to a 3.2 x 2.8 cm mass in right lung lo wer lobe IMPRESSION: 1. CT-guided core needle biopsy of a mass in right lung lower lobe. Reviewed, dictated and finalized at location A. ORK ANNOUNCER
[2023-08-24 10:12] LABS: INR 0.9; Prothrombin Time 12.6 Seconds (11.1-14.7)
[2023-08-24 10:20] LABS: Mean Platelet Volume 9.1 fl (7.4-10.4); Platelet Count Result 308 k/mm3 (150-375)
== END 2023-08-24 15:10 | disposition home or self-care (01) ==
PROVIDERS: PCP Family Medicine; Referring Provider Internal Medicine Hematology; Visit Provider Radiology Diagnostic Radiology
PROC: BB24ZZZ Computerized Tomography (CT Scan) of Bilateral Lungs (ICD-10-PCS; CPT 32408; principal; 2023-08-24 11:00)
DX: R91.1 Solitary pulmonary nodule (principal); C34.91 Malignant neoplasm of unspecified part of right bronchus or lung
CPT/HCPCS: 32408; 36415; 71045; 85049; 85610; 88305

== ENCOUNTER 2023-09-27 13:49 | Outpatient (CLI) | payer MEDICARE, MEDICAID, SELFPAY ==
--- NOTE | 2023-10-13 10:14 | WPDPFTINT ---
PFT Procedure Performed PFT Procedure Performed Spirometry with Pre/Post Bronchodilator Plethysmography (Lung Vol) Diffusing Cap (DLCO) Flow Vol Loop PFT Interpretation DOS: 09/27/2023 REQUESTING: Al Truong APRN REASON FOR TESTING: COPD PULMONARY FUNCTION TESTS As of October 08, 2022, the Global Lung Initiative reference equations are used in interpretation of spirometry, lung volumes and diffusing capacity. Race and ethnicity are not included as variables in the interpretation strategy. Spirometry: The pre-bronchodilator FEV1 is 1.78 L, 82% predicted, normal. The pre-bronchodilator FVC is 3.0 L, 110% predicted, normal. The FEV1/FVC ratio is 60%, decreased. After bronchodilator, the FEV1 is 1.86 L, 85%, 4% increase. The FVC is 3.07 L, 113%, 3% increase. The FEV1/FVC ratio after bronchodilator is 60%. Lung volumes: The total lung capacity is 4.62 L, 96% predicted, normal. The residual volume is 1.62 L, 84%, normal. The RV/TLC is 35%, normal. Airway resistance is 2.24, 168% predicted, increased. Diffusion: DLCO is 10.8, 59% predicted, decreased The DLCO/VA is 3.28, 91%, normal. Flow volume loop: The flow volume loop is mild coving of the expiratory limb. IMPRESSION: This study shows a mild obstructive ventilatory impairment without significant response after bronchodilator, normal lung volumes, and mild diffusion impairment which normalizes for alveolar volume. Lack of response to bronchodilator should not preclude use of clinically indicated Compared to a study on 05/01/2022, spirometry is similar, mild obstructive ventilatory defect was present and there was no significant response to bronchodilator lung volumes are similar. On the prior study patient was not able to perform diffusion. Mallika Marks MD
== END 2023-09-27 13:50 | disposition home or self-care (01) ==
LOC: CHSCARD 13:51
PROVIDERS: PCP Family Medicine; Visit Provider Nurse Practitioner Family
DX: J44.9 Chronic obstructive pulmonary disease, unspecified (principal); C34.31 Malignant neoplasm of lower lobe, right bronchus or lung; R94.2 Abnormal results of pulmonary function studies
CPT/HCPCS: 94060; 94726; 94729

== ENCOUNTER 2023-11-23 07:18 | Outpatient (CLI) | payer MEDICARE, MEDICAID, SELFPAY ==
--- NOTE | ~2023-11-23 | PE_ITS ---
EXAMINATION: PET skull to mid thigh DATE: 11/23/2023 09:10 INDICATION: Left lung adenocarcinoma TECHNIQUE: Blood glucose level was 100 mg/dL. 9.088 mCi of 18-fluorodeoxyglucose (18-FDG) was adminis tered i.v. Low dose computed tomography (CT) images were acquired from the base of the brain to the p roximal thighs for attenuation correction and anatomic localization. Positron emission tomography (PE T) images were acquired in the same distribution beginning 55 minutes after injection. Images includi ng fused PET/CT images were reconstructed in axial, coronal, and sagittal planes. Automated exposure control technique was employed. The dose-length product was 609.92mGy-cm. COMPARISON: 07/20/2023 FINDINGS: Head/neck: There is symmetric increased activity in the oral cavity, palatine tonsils, parotid glands, submandi bular glands, laryngeal muscles and ocular muscles without CT correlate, likely physiologic. There is asymmetric increased uptake extending craniocaudally along the left longus capitis muscle without ra diologic correlate, likely physiologic. No pathologically enlarged cervical lymphadenopathy or suspic ious foci of increased FDG uptake in the visualized head or neck. Chest: Interval increase in size of a previously 2.7 cm, now 3.6 x 3.4 cm FDG avid mass at the posterior seg ment of the right upper lobe with maximal SUV of 7.5 corresponding to the biopsy-proven squamous cell carcinoma. There is absent FDG uptake centrally consistent with necrosis. Stable appearance of chron ic airspace opacities with volume loss in the perihilar right lung extending caudally in the posterio r medial right lower lobe consistent with radiation fibrosis. There is FDG uptake similar in degree t o the liver within the region of radiation fibrosis with maximal SUV of 3.8. Mildly FDG avid 5 mm nod ule in the posterior segment of the left upper lobe along the cephalad aspect of the left major fissu re with maximal SUV of 2.9. Heart size is normal. Atherosclerotic coronary artery calcific lesions. N o pericardial or pleural effusion. Thoracic aorta is normal in caliber. No pathologically enlarged th oracic lymphadenopathy. Abdomen/pelvis/proximal thighs: Physiologic renal accumulation and excretion of FDG activity in the kidneys, bladder and along portio ns of ureters. Low-attenuation photopenic cyst measuring 2.5 cm at the upper pole the left kidney and measuring 1.3 m with partial rim calcific lesion at the upper pole the right kidney. 1.4 cm low-atte nuation photopenic cyst at the dome of the liver. Unchanged small region of macroscopic fat within a focal cortical defect at the posterior lower pole the right kidney and favor scarring related to prio r infection or infarction over an unchanged angiomyolipoma. Normal degree and heterogenous pattern of increased uptake throughout the surrounding liver without radiologic correlate or dominant FDG avid lesion. The gallbladder, pancreas, spleen and bilateral adrenal glands are normal. Mild uptake scatte red throughout the bowels without radiologic correlate, also likely physiologic. No other abnormal fo ci of increased FDG uptake or pathologically enlarged lymphadenopathy in the abdomen, pelvis or proxi mal thighs. Musculoskeletal: Likely physiologic increased uptake at the bilateral rotator cuff musculature at the shoulders withou t radiologic correlate. Severe cervical and lumbosacral spondylosis with moderate spondylosis of the intervening thoracic spine. No suspicious lytic, blastic or FDG avid bone lesions. IMPRESSION: 1. Increase in size of a previously 2.7 cm, currently 3.6 cm FDG avid right upper lobe mass consisten t with biopsy-proven squamous cell carcinoma. 2. Diffuse mild FDG uptake throughout an unchanged region of right perihilar consolidation with volum e loss likely related to treated lung cancer with radiation pneumonitis. 3. Mild FDG uptake associated with a 5 mm nodule in the
[2023-11-23 07:40] LABS: Glucose Point of Care 100 mg/dl (65-105)
== END 2023-11-23 07:19 | disposition home or self-care (01) ==
LOC: ANHIMG 07:19
PROVIDERS: PCP Family Medicine; Visit Provider Internal Medicine Hematology
DX: C34.12 Malignant neoplasm of upper lobe, left bronchus or lung (principal)
CPT/HCPCS: 78815; A9552

== ENCOUNTER 2024-04-04 12:46 | Outpatient (CLI) | payer MEDICARE, MEDICAID, SELFPAY ==
--- NOTE | 2024-04-04 15:00 | NEURO_ITS ---
Impression: # Complains of right foot numbness. # Borderline motor/sensory axonal neuropathy. # Needle/EMG exam mildly abnormal in right EDB. Nerve Conduction Studies Anti Sensory Summary Table Stim Site NR Peak (ms) P-T Amp (?V) Site1 Site2 Delta-P (ms) Dist (cm) Kai (m/s) Left Sup Fibular Anti Sensory (Ant Lat Mall) 14 cm 3.5 9.3 14 cm Ant Lat Mall 3.5 16.0 46 Right Sup Fibular Anti Sensory (Ant Lat Mall) 14 cm 3.3 8.7 14 cm Ant Lat Mall 3.3 16.0 48 Left Sural Anti Sensory (Lat Mall) Calf 3.1 0.8 Calf Lat Mall 3.1 16.0 52 Right Sural Anti Sensory (Lat Mall) NO RESPONSE Calf NR Calf Lat Mall 16.0 Motor Summary Table Stim Site NR Onset (ms) O-P Amp (mV) Site1 Site2 Delta-0 (ms) Dist (cm) Kai (m/s) Left Peroneal Motor (Vastus Med) Ankle 3.2 3.1 Popit Ankle 7.9 40.0 51 Popit 11.1 4.8 Right Peroneal Motor (Vastus Med) Ankle 4.4 1.7 Popit Ankle 9.0 40.0 44 Popit 13.4 1.9 Left Tibial Motor (Abd Valero Brev) Ankle 4.1 4.0 Knee Ankle 8.3 40.0 48 Knee 12.4 3.3 Right Tibial Motor (Abd Valero Brev) Ankle 4.5 5.0 Knee Ankle 9.3 40.0 43 Knee 13.8 5.3 F Wave Studies NR F-Lat (ms) L-R F-Lat (ms) Left Peroneal (Mrkrs) (EDB) 50.66 3.87 Right Peroneal (Mrkrs) (EDB) 54.53 3.87 Left Tibial (Mrkrs) (Abd Hallucis) 52.18 0.94 Right Tibial (Mrkrs) (Abd Hallucis) 53.12 0.94 EMG Side Muscle Nerve Root Ins Act Fibs Amp Dur Recrt Comment Right AntTibialis Dp Br Fibular L4-5 Nml Nml Nml Nml Nml Right Gastroc Tibial S1-2 Nml Nml Nml Nml Nml Right Fibularis Long Sup Br Fibular L5-S1 Nml Nml Nml Nml Nml Right Flex Dig Long Tibial L5-S2 Nml Nml Nml Nml Nml Right Ext Dig Brev Dp Br Fibular L5, S1 Nml Nml Decr >12ms +2 Right QuadratusFem QuadFemoris L4-5, S1 Nml Nml Nml Nml Nml Left AntTibialis Dp Br Fibular L4-5 Nml Nml Nml Nml Nml Left Gastroc Tibial S1-2 Nml Nml Nml Nml Nml Left Fibularis Long Sup Br Fibular L5-S1 Nml Nml Nml Nml Nml Left Flex Dig Long Tibial L5-S2 Nml Nml Nml Nml Nml Left Ext Dig Brev Dp Br Fibular L5, S1 Nml Nml Nml Nml Nml Left QuadratusFem QuadFemoris L4-5, S1 Nml Nml Nml Nml Nml MTDD
== END 2024-04-04 12:47 | disposition home or self-care (01) ==
LOC: ANHNEURO 12:53
PROVIDERS: PCP Family Medicine; Referring Provider Psychiatry & Neurology Neurology; Visit Provider Student in an Organized Health Care Education/Training Program
DX: G62.9 Polyneuropathy, unspecified (principal)
CPT/HCPCS: 95886; 95910

== ENCOUNTER 2024-05-02 07:26 | Outpatient (CLI) | payer MEDICARE, MEDICAID, SELFPAY ==
--- NOTE | ~2024-05-02 | CT_ITS ---
EXAMINATION:CT diagnostic chest w con DATE: 05/02/2024 08:20 INDICATION: Adenocarcinoma of lung. Chest pain. TECHNIQUE: Computed tomography (CT) of the chest was performed with 75 mL Omnipaque 350 intravenous c ontrast. Automated exposure control and iterative reconstruction technique were employed. The dose-le ngth product (DLP) was 161.17 mGy-cm. COMPARISON: Chest CT 06/25/2023, 11/17/22, 10/01/21, 11/30/20 FINDINGS: There is mild emphysema. There is mild atelectasis bilaterally. There are airspace opacitie s with volume loss, architectural distortion, and varicose bronchiectasis involving perihilar right l gage. There is a 3.1 x 2.5 cm mass in posterior segment right upper lobe that measured 2.9 x 2.3 cm on 06/25/2023. No pleural effusion. The heart size is normal. No pericardial effusion. There is a small sliding hiatal hernia. There is a 15 mm cyst in the liver. There are cysts in the kidneys measuring up to 2.2 cm on the left. There are old healed right rib fractures. There is severe cervical and thor acic spondylosis. IMPRESSION: 1. Mass in posterior segment right upper lobe, stable from 06/25/2023, consistent with malignancy. Reviewed, dictated and finalized at location A. IMPRESSION: 1. Mass in posterior segment right upper lobe, stable from 06/25/2023, consiste nt with malignancy.
[2024-05-02 07:45] LABS: Estimated Glomerular Filt Rate > 60
== END 2024-05-02 07:27 | disposition home or self-care (01) ==
LOC: CHSIMG 07:29
PROVIDERS: PCP Family Medicine; Visit Provider Internal Medicine Hematology
DX: C34.90 Malignant neoplasm of unspecified part of unspecified bronchus or lung (principal); R91.8 Other nonspecific abnormal finding of lung field
CPT/HCPCS: 71260; Q9967

== ENCOUNTER 2024-05-17 13:35 | Outpatient (CLI) | payer MEDICARE, SELFPAY ==
[2024-05-17 14:03] LABS: Basophils Absolute Auto 0.06 K/mm3 (0.00-0.10); Basophils Percent Auto 0.8 % (0.0-1.0); Eosinophils Absolute Auto 0.28 K/mm3 (0.02-0.50); Eosinophils Percent Auto 3.7 % (1.0-6.0); Hematocrit 36.6 % (35.0-42.0); Immature Granulocyte Absolute 0.04 K/mm3 (0.00-0.00); Immature Granulocyte Percent A 0.5 % (0.0-0.0); Lymphocytes Absolute Auto 1.45 K/mm3 (1.10-4.50); Lymphocytes Percent Auto 19.2 % (18.0-42.0); Mean Corpuscular HGB Conc 32.8 g/dL (32-36); Mean Corpuscular Hemoglobin 28.9 pg (27.0-31.0); Mean Corpuscular Volume 88.2 fL (78.0-102.0); Mean Platelet Volume 9.1 fl (9.2-11.8); Monocytes Absolute Auto 0.54 K/mm3 (0.10-0.90); Monocytes Percent Auto 7.1 % (2.0-11.0); Neutrophils Absolute Auto 5.19 K/mm3 (1.70-7.20); Neutrophils Percent Auto 68.7 % (50.0-70.0); Platelet Count Result 306 K/mm3 (150-420); Red Blood Count 4.15 M/mm3 (4.20-5.40); Red Cell Distribution Width 13.8 % (11.6-14.4); White Blood Count 7.6 K/mm3 (4.8-10.8)
[2024-05-17 14:12] LABS: Hemoglobin A1C 5.8 % (<5.7)
[2024-05-17 15:15] LABS: Alanine Aminotransferase 37 U/L (14-59); Albumin Level 3.7 g/dL (3.4-5.0); Alkaline Phosphatase 118 U/L (46-116); Anion Gap 8 mmol/L (4-12); Aspartate Amino Transferase 23 U/L (15-37); Bilirubin,Total 0.2 mg/dL (0.00-1.00); Blood Urea Nitrogen 23 mg/dL (7-18); Calcium 9.3 mg/dL (8.5-10.1); Carbon Dioxide 29 mmol/L (21-32); Chloride 104 mmol/L (98-108); Estimated Glomerular Filt Rate 49; Folic Acid 11.3 ng/mL (8.6->20); Glucose 86 mg/dL (70-99); Osmolality Calculated 294 mOsm/kg (285-295); Potassium 4.5 mmol/L (3.5-5.1); Sodium 141 mmol/L (136-145); Total Protein 6.8 g/dL (6.4-8.2)
[2024-05-17 15:19] LABS: Vitamin B12 > 2000 pg/mL (193-986)
[2024-05-18 18:44] LABS: SS-A <1.0 NEG AI (<1.0 NEG); SS-B <1.0 NEG AI (<1.0 NEG)
[2024-05-19 14:55] LABS: Homocysteine 9.4 umol/L (<10.4)
[2024-05-21 15:54] LABS: Vitamin B6 14.8 ng/mL (2.1-21.7)
[2024-05-21 21:58] LABS: Immunofixation, Serum Normal pattern.
[2024-05-26 10:19] LABS: Vitamin B1 31 nmol/L (8-30)
== END 2024-05-17 13:36 | disposition home or self-care (01) ==
LOC: CHSLAB 13:37
PROVIDERS: PCP Family Medicine; Visit Provider Student in an Organized Health Care Education/Training Program
DX: R73.9 Hyperglycemia, unspecified (principal); G62.9 Polyneuropathy, unspecified
CPT/HCPCS: 36415; 80053; 82607; 82746; 83036; 83090; 84207; 84425; 85025; 86038; 86039; 86235; 86334; 86335

== ENCOUNTER 2024-06-21 09:11 | Emergency (ER) | payer MEDICARE, MEDICAID, SELFPAY ==
--- NOTE | ~2024-06-21 | CT_ITS ---
CT cervical spine wo con Ordering provider: Satya Lynne MD History: . neck pain-CHRONIC,RT ARM PAIN . Comparison: None. Technique: CT of the cervical spine was performed without contrast. Sagittal and coronal reformatted images were also obtained and reviewed. Automated exposure control and iterative reconstruction bob hnique were employed. The dose-length product was 148.46 mGy-cm. FINDINGS: VERTEBRAE: No subluxation or acute fracture. The occipital condyles are intact. DISC SPACES: Narrowing of the disc C4-C5, C5-C6 and C6-C7. Multilevel facet joint disease. Multilevel uncovertebral joint arthritic changes. Narrowing of the right foramen at the level of C3-C 4. Bilateral narrowing of the foramina at the level of C4-C5, C5-C6 and C6-C7. PARASPINOUS SOFT TISSUES: Normal. IMPRESSION: No acute osseous abnormality cervical spine. Multilevel degenerative disc disease. Reviewed, dictated and finalized at location A. E CALLS NURSE
--- NOTE | ~2024-06-21 | CT_ITS ---
EXAMINATION: CT chest abdomen pelvis w con DATE: 06/21/2024 11:21 INDICATION: Right-sided chest pain and wheezing. Right arm and neck pain. TECHNIQUE: Computed tomography (CT) of the chest, abdomen, and pelvis was performed with 100 mL Omnip aque-350 intravenous contrast. Automated exposure control and iterative reconstruction technique were employed. The dose-length product was 550.05 mGy-cm. COMPARISON: Chest CT dated 05/02/2024 and PET/CT dated 11/23/2023 FINDINGS: CHEST CT: Mild emphysema. Stable appearance of volume loss, consolidation and bronchiectatic changes in the per ihilar and paramediastinal right lower lobe and posterior segment of the right upper lobe. Unchanged 3.0 x 2.6 cm mass in the posterior segment of the right upper lobe. There is additional unchanged mil d pleural parenchymal scarring at the posterior right upper lobe and at the lateral basilar left lowe r lobe. Unchanged small focus of linear scarring in the posterior segment left upper lobe along the m ajor fissure at the site of a prior small FDG avid nodule on prior PET/CT. No pulmonary nodules, pulm onary edema, pleural effusion or other new lung disease. Cannot performed as a dedicated pulmonary em bolism protocol there is good contrast desiccation of the pulmonary arteries demonstrating no pulmona ry embolism. Heart size is normal. No pericardial effusion. Small of atherosclerotic 1 artery calcifi cation. Thoracic aorta is normal in caliber with no dissection. Likely benign 4 mm hypodense nodules in the right thyroid lobe. No pathologically enlarged thoracic lymphadenopathy. Small sliding-type hi atal hernia. Severe spondylosis at the lower cervical and lower thoracic spine with moderate interven ing thoracic spondylosis. ABDOMEN/PELVIS CT: Unchanged 1.4 cm cyst at the dome of the liver. Gallbladder, spleen, pancreas and bilateral adrenal g lands are normal. 1.3 cm partially rim calcified cyst at the upper pole the right kidney and a few le ft renal cysts measuring up to 3.2 cm. Suggestion of a linear suture line along the margins of a smal l cortical defect at the posterior right kidney suggesting prior partial nephrectomy. Correlate with surgical history. Bowels are unremarkable with no obstruction. Bladder is normal. The uterus and bila teral ovaries are not identified and have likely been surgically resected. No free intraperitoneal ga s or fluid. No pathologically enlarged abdominal or pelvic lymphadenopathy. Severe spondylosis at the lumbosacral junction with mild more cephalad lumbar spondylosis. IMPRESSION: 1. No interval change in a mass in the posterior segment of the right upper lobe consistent with biop sy-proven squamous cell carcinoma and with the surrounding likely radiation fibrosis and scarring in the posterior segment right upper lobe and perihilar and mediastinal right lower lobe. No acute cardi opulmonary disease. 2. No acute intra-abdominal/pelvic process. Reviewed, dictated and finalized at location A. CHBOARD AND CONTROL ROOM OPERATOR IMPRESSION: 1. No interval change in a mass in the posterior segment of the right upper lob e consistent with biopsy-proven squamous cell carcinoma and with the surroundin g likely radiation fibrosis and scarring in the posterior segment right upper l obe and perihilar and mediastinal right lower lobe. No acute cardiopulmonary di sease. 2. No acute intra-abdominal/pelvic process.
--- NOTE | ~2024-06-21 | XR_ITS ---
EXAMINATION: XR chest 1V portable DATE: 06/21/2024 10:00 INDICATION: Right chest pain with movement TECHNIQUE: frontal view of the chest was obtained. COMPARISON: Chest radiograph dated 08/24/[address] dated 05/02/2024 FINDINGS: Opacities in the paramediastinal right mid to lower lung projecting over the right hilum and right si de of the heart. Additional unchanged mild pleural parenchymal scarring at the lateral left lower jhonathan g zone. No pulmonary edema, pleural effusion or pneumothorax. Heart size is normal. A couple old heal ed fractures of the posterior right seventh and eighth ribs. IMPRESSION: 1. Chronic paramediastinal opacities in the right mid to lower lung consistent with likely scarring/r adiation fibrosis related to treatment of a reported lung cancer. 2. Chronic pleural parenchymal scarring at the bilateral left lower lung. Reviewed, dictated and finalized at location A. ROL OPERATOR FLOW COAT IMPRESSION: 1. Chronic paramediastinal opacities in the right mid to lower lung consistent with likely scarring/radiation fibrosis related to treatment of a reported lung cancer. 2. Chronic pleural parenchymal scarring at the bilateral left lower lung.
[2024-06-21 09:16] VITALS: BP 116/83; PULSE 120; RESP 18; TEMP 37.3; O2SAT 96
--- NOTE | 2024-06-21 09:24 | ED.CHESTPAIN ---
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 she received chemo and RT. Her last RT was in January. 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 She presents to the ED with with with a 1 day history of -- right-sided chest pain which is made worse by deep breathing and coughing. she has had pain in the right chest in the past but pain has increased dramatically since yesterday and is not responding to oxycodone. -- right upper extremity pain which is chronic -- chronic neck pain/ chronic low back pain MD complaint: chest pain Onset (ago): day(s) ( One day) Timing of current episode: constant Prior episodes: Yes Onset: during rest Pain location: right chest Pain radiation: none Severity: severe Quality: aching Relieving factors: nothing Exacerbating factors: exertion Context: other ( status post treatment with RT and chemo.) Associated symptoms: dyspnea Treatment prior to arrival: other ( Oxycodone) Risk Factors Coronary artery disease risk factors: smoking history, hyperlipidemia and hypertension Thoracic aortic dissection risk factors: longstanding hypertension Related Data Home Medications ?Medication ?Instructions ?Recorded ?Confirmed ?Last Taken ?Type amlodipine 5 mg tablet 5 mg PO QAM 10/07/21 02/25/24 08/24/23 07:00 History famotidine 20 mg tablet 20 mg PO HS 10/07/21 02/25/24 08/23/23 History pantoprazole 40 mg tablet,delayed 40 mg PO DAILY 10/07/21 02/25/24 08/23/23 History release potassium 99 mg tablet 99 mg PO DAILY 10/07/21 02/25/24 08/23/23 History cyclobenzaprine 5 mg tablet 5 mg PO TID 07/14/22 02/25/24 08/23/23 History rosuvastatin 20 mg tablet 20 mg PO DAILY 10/05/23 06/21/24 Unknown History albuterol sulfate 90 mcg/actuation 1 puff inhalation Q4H PRN 02/25/24 02/25/24 Unknown History aerosol inhaler shortness of breath or wheezing fluticasone fur. 100 mcg-umeclid 1 inh inhalation DAILY 02/25/24 02/25/24 Unknown History 62.5 mcg-vilant 25 mcg inhalat.powder (Trelegy Ellipta) oxycodone 5 mg tablet 5 mg PO Q8H PRN pain 02/25/24 02/25/24 06/21/24 History calcium 600 mg (as 1 tablet PO DAILY 06/21/24 Unknown History carbonate)-vitamin D3 5 mcg (200 unit) tablet (Calcium 600 + D(3)) cyanocobalamin (vitamin B-12) 5,000 mcg PO DAILY 06/21/24 Unknown History 1,000 mcg tablet (Vitamin B-12) Allergies Allergy/AdvReac Type Severity Reaction Status Date / Time adhesive tape AdvReac SKIN Verified 06/21/24 09:25 IRRITATION Review of Systems Review of Systems: All systems reviewed & are unremarkable except as noted in HPI and below Constitutional: Constitutional: Reports as per HPI, Reports no additional constitutional complaints and Reports weakness Eyes: Eyes: Reports as per HPI and Reports no additional eye complaints ENT: Reports system reviewed and no additional complaints, except as documented and Reports as per HPI Cardiovascular: Cardiovascular: Reports as per HPI, Reports no additional cardiovascular complaints and Reports chest pain Respiratory: Respiratory: Reports as per HPI, Reports no additional respiratory complaints and Reports dyspnea Gastrointestinal: Gastrointestinal: Reports as per HPI and Reports no additional gastrointestinal complaints Genitourinary: Genitourinary: Reports no additional female genitourinary complaints and Reports as per HPI Musculoskeletal: Musculoskeletal: Reports no additional musculoskeletal complaints, Reports as per HPI and Reports back pain Comments: chronic low back pain and neck pain new right upper extremity pain Integumentary/Breasts: Skin/Breast: Reports system reviewed and no additional complaints, except as docu and Reports as per HPI Neurologic: Reports system reviewed and no additional complaints, except as documented and Reports as per HPI Psychiatric: Psychiatric: Reports no additional psychiatric complaints and Reports as per HPI Endocrine: Endocrine: Reports no additional endocrine complaints and Reports as per HPI Hematologic/Lymphatic: Hematologic/Lymphatic: Reports no additional hematologic/lymphatic complaints and Reports as per HPI Allergic/Immunologic: Allergic/Immunologic: Reports no additional allergic/immunologic complaints and Reports as per HPI PMFSH Past Medical History Medical History Chronic lower back pain Peripheral neuropathy MARCY (obstructive sleep apnea) intolerant to PAP Skin cancer Lung cancer COPD (chronic obstructive pulmonary disease) Surgical History Surgical History H/O: hysterectomy Social History Social History Smoking status: Former smoker Tobacco type: e-cigarettes/vaping Smoking end date: 04/11/23 Additional smoking assessment comments: STATES 1PK/WEEK/SINCE AGE 11 Alcohol intake: current Alcohol use details: STATES VERY RARELY - COUPLE TIMES /6 MONTHS Substance use: never Substance use type: does not use Do You Feel Safe in your Home?: Yes Lack of Transportation: No Lack of Food: Never True Current Housing: I Have Housing Concerned About Future Housing: No Difficulty Paying Gas/Electric Bills: No Difficulty Paying for Meds: No Currently Unemployed: No Education: Trade/Vocational Certificate Difficulty w/ Childcare or Family Care: No Spiritual care concerns: No Exam Narrative: vitals are stable. Afebrile. Oxygen saturation of 96% on room air with a respiratory rate of 18. Const: General: no acute distress Orientation/consciousness: patient oriented x3 Limitations: no limitations HENMT: Head: normal to inspection Ears: external ears normal Face/Nose/Sinus: Normal external nose present Face and sinus: normal facial exam Mouth: Yes Normal oral and palatal mucosa present Throat: posterior oropharynx normal Eyes: Conjunctivae: conjunctivae normal Pupils: Equal, round and reactive pupils present EOM: EOMs intact bilaterally Direct Ophthalmoscopy: no photophobia Neck: Neck: normal visual inspection, no lymphadenopathy and no meningeal signs Chest: Chest palpation & inspection: normal inspection of the chest Resp: Other: Decreased breath sounds on the right side with scattered rales Cardio: Rate: regular rate Rhythm: regular rhythm GI: GI Palp: Yes Soft to palpation Auscultation: normal bowel sounds : General: Yes no CVA tenderness Back/Spine/Pelvis: Back: no CVA tenderness Skin: General skin exam: normal color Rashes: no rashes Neuro: General: patient oriented x3, moves all extremities, no meningeal signs, no focal motor deficits and CN's II-XI intact bilaterally Cranial nerves: Yes Nystagmus not present Speech: normal speech Gait exam (Neuro): Normal gait present Extrem: General: normal to inspection and no clubbing, cyanosis or edema Psych: Mental Status: mental status grossly normal Affect: normal affect Attitude: cooperative Course Course Emergency Course: right chest wall pain-- x-ray did not show any acute findings. CT of the chest/abdomen/ pelvis revealed an unchanged right upper lobe mass without any thoracic lymphadenopathy. The CT of the abdomen and pelvis did not show any acute findings. normal D-dimer. chronic paramediastinal infiltrates in the right mid and lower zone. updated Dr. Sharif the patient's oncologist. Advised to continue her pain medications Right upper extremity pain-- CT of the C-spine revealed degenerative arthritic changes. Vital Signs Vital signs: Vital Signs Temperature 37.3 C 06/21/24 09:16 Pulse Rate 120 H 06/21/24 09:16 Respiratory Rate 18 06/21/24 09:16 Blood Pressure 116/83 06/21/24 09:16 Pulse Oximetry 96 06/21/24 09:16 Oxygen Delivery Room Air 06/21/24 09:16 Temperature 37.3 C 06/21/24 09:16 Pulse Rate 120 H 06/21/24 09:16 Respiratory Rate 18 06/21/24 09:16 Blood Pressure 116/83 06/21/24 09:16 Pulse Oximetry 96 06/21/24 09:16 Oxygen Delivery Room Air 06/21/24 09:16 MDM - Chest Pain MDM Narrative Medical decision making narrative: Right lung cancer right chest wall pain right upper extremity pain secondary to cervical radiculopathy Differential Diagnosis Differential diagnosis: Likely pneumothorax and stable angina Medical Records Data Attestation: I reviewed the patient's medical records. Lab Data Attestation: I reviewed the patient's lab results. 06/21/24 10:02 06/21/24 10:02 Labs: Lab Results 06/21/24 Range/Units 10:02 WBC 10.0 (4.8-10.8) K/mm3 RBC 4.31 (4.20-5.40) M/mm3 Hgb 12.5 (11.7-13.8) g/dL Hct 37.2 (35.0-42.0) % MCV 86.3 (78.0-102.0) fL MCH 29.0 (27.0-31.0) pg MCHC 33.6 (32-36) g/dL RDW 13.5 (11.6-14.4) % Plt Count 295 (150-420) K/mm3 MPV 8.7 L (9.2-11.8) fl Immature Gran % (Auto) 0.4 H (0.0-0.0) % Neut % (Auto) 81.1 H (50.0-70.0) % Lymph % (Auto) 11.4 L (18.0-42.0) % [place] % (Auto) 6.3 (2.0-11.0) % Eos % (Auto) 0.4 L (1.0-6.0) % Baso % (Auto) 0.4 (0.0-1.0) % Lymph # (Auto) 1.14 (1.10-4.50) K/mm3 [place] # (Auto) 0.63 (0.10-0.90) K/mm3 Eos # (Auto) 0.04 (0.02-0.50) K/mm3 Baso # (Auto) 0.04 (0.00-0.10) K/mm3 Abs Immat Gran (auto) 0.04 H (0.00-0.00) K/mm3 Absolute Neuts (auto) 8.07 H (1.70-7.20) K/mm3 Absolute Nucleated RBC 0.00 (0.00-0.00) K/mm3 Nucleated RBC % 0.0 (0-0.0) % PT 10.8 (9.50-12.1) Seconds INR 1.0 APTT 25.1 (23.9-30.70) Sec D-Dimer 0.50 (0.19-0.50) mg/L Sodium 137 (136-145) mmol/L Potassium 4.1 (3.5-5.1) mmol/L Chloride 97 L (98-108) mmol/L Carbon Dioxide 26 (21-32) mmol/L Anion Gap 14 H (4-12) mmol/L BUN 21 H (7-18) mg/dL Creatinine 1.16 H (0.55-1.02) mg/dL Estim Creat Clear Calc 35 ml/min Estimated GFR 46 L (59 - ) Glucose 101 H (70-99) mg/dL Calculated Osmolality 287 (285-295) mOsm/kg Lactic Acid 1.2 (0.4-2.0) mmol/L Calcium 10.1 (8.5-10.1) mg/dL Total Bilirubin 0.7 (0.00-1.00) mg/dL AST 23 (15-37) U/L ALT 30 (14-59) U/L Alkaline Phosphatase 141 H (46-116) U/L Troponin I 4.0 (0.00-60.4) ng/L NT-Pro-B Natriuret Pep 84 (0-125) pg/mL Total Protein 7.5 (6.4-8.2) g/dL Albumin 4.0 (3.4-5.0) g/dL ECG Data EKG #1: ECG completion date: 06/21/24 ECG completion time: 12:09 Interpretation: sinus tachycardia with a heart rate of 110. Normal axis. No ST -T-wave changes noted. Discharge Plan Discharge Clinical Impression: Right-sided chest wall pain, Lung cancer, Cervical radiculopathy Patient Disposition: Home, Self-Care Condition: Stable Instructions: Antibiotic Form, Cervical Radiculopathy (ED), Chest Wall Pain (ED) Patient Language: Croatian Prescriptions: No Action calcium carbonate-vitamin D3 [Calcium 600 + D(3)] 600 mg-5 mcg (200 unit) tablet 1 tablet PO DAILY cyanocobalamin (vitamin B-12) [Vitamin B-12] 1,000 mcg tablet 5,000 mcg PO DAILY rosuvastatin 20 mg tablet 20 mg PO DAILY Trelegy Ellipta 100-62.5-25 mcg blister with device 1 inh inhalation DAILY albuterol sulfate 90 mcg/actuation HFA aerosol inhaler 1 puff inhalation Q4H PRN (Reason: shortness of breath or wheezing) oxycodone 5 mg tablet 5 mg PO Q8H PRN (Reason: pain) gabapentin 300 mg capsule 300 mg PO QHS Qty: 60 6RF Rx Instructions: start with 1 capsule at bedtime and increase to 2 capsules if necessary after 2 weeks cyclobenzaprine 5 mg tablet 5 mg PO TID amlodipine 5 mg tablet 5 mg PO QAM potassium 99 mg Tablet 99 mg PO DAILY famotidine 20 mg tablet 20 mg PO HS pantoprazole 40 mg tablet,delayed release (DR/EC) 40 mg PO DAILY Follow-up/Referrals: Sandra,MD Long [Primary Care Provider] - Time of Disposition: 12:07
--- NOTE | 2024-06-21 09:47 | ECG_ITS ---
Test Date: 2024-06-21 10:19:33 Measurements Intervals [place] Rate: 110 P: 61 FL: 192 QRS: 56 QRSD: 72 T: 48 QT: 311 QTc: 422 Interpretive Statements SINUS TACHYCARDIA No previous ECG available for comparison Electronically Signed On 06-22-2024 16:43:40 DURABILITY ENGINEER by Vitaliy Merrill M.D.
[2024-06-21] MEDS: ONDANSETRON HCL ODT 4 MG TABLET PO (10:00)
[2024-06-21] MEDS: HYDROmorphone HCL INJ (*CRX) 2 MG/ML VIAL 0.5 MG IM (10:01)
[2024-06-21 10:07] LABS: Basophils Absolute Auto 0.04 K/mm3 (0.00-0.10); Basophils Percent Auto 0.4 % (0.0-1.0); Eosinophils Absolute Auto 0.04 K/mm3 (0.02-0.50); Eosinophils Percent Auto 0.4 % (1.0-6.0); Hematocrit 37.2 % (35.0-42.0); Hemoglobin 12.5 g/dL (11.7-13.8); Immature Granulocyte Absolute 0.04 K/mm3 (0.00-0.00); Immature Granulocyte Percent A 0.4 % (0.0-0.0); Lymphocytes Absolute Auto 1.14 K/mm3 (1.10-4.50); Lymphocytes Percent Auto 11.4 % (18.0-42.0); Mean Corpuscular HGB Conc 33.6 g/dL (32-36); Mean Corpuscular Volume 86.3 fL (78.0-102.0); Mean Platelet Volume 8.7 fl (9.2-11.8); Monocytes Absolute Auto 0.63 K/mm3 (0.10-0.90); Monocytes Percent Auto 6.3 % (2.0-11.0); Neutrophils Absolute Auto 8.07 K/mm3 (1.70-7.20); Neutrophils Percent Auto 81.1 % (50.0-70.0); Platelet Count Result 295 K/mm3 (150-420); Red Blood Count 4.31 M/mm3 (4.20-5.40); Red Cell Distribution Width 13.5 % (11.6-14.4)
[2024-06-21 10:23] LABS: Partial Thromboplastin Time 25.1 Sec (23.9-30.70); Prothrombin Time 10.8 Seconds (9.50-12.1)
[2024-06-21 10:25] LABS: Lactic Acid Reflex 1.2 mmol/L (0.4-2.0)
[2024-06-21 10:31] LABS: Alanine Aminotransferase 30 U/L (14-59); Alkaline Phosphatase 141 U/L (46-116); Anion Gap 14 mmol/L (4-12); Aspartate Amino Transferase 23 U/L (15-37); Bilirubin,Total 0.7 mg/dL (0.00-1.00); Blood Urea Nitrogen 21 mg/dL (7-18); Calcium 10.1 mg/dL (8.5-10.1); Carbon Dioxide 26 mmol/L (21-32); Chloride 97 mmol/L (98-108); Estimated CRCL calculation 35 ml/min; Estimated Glomerular Filt Rate 46; Glucose 101 mg/dL (70-99); NT Pro B Type Natriuretic Pept 84 pg/mL (0-125); Osmolality Calculated 287 mOsm/kg (285-295); Potassium 4.1 mmol/L (3.5-5.1); Sodium 137 mmol/L (136-145); Total Protein 7.5 g/dL (6.4-8.2)
[2024-06-21] MEDS: LACTATED RINGERS 1,000 ML 999 ML IV CONT (11:28)
[2024-06-21 12:14] VITALS: BP 167/79; PULSE 94; RESP 20; TEMP 36.6; O2SAT 95
== END 2024-06-21 12:25 | disposition home or self-care (01) ==
PROVIDERS: Emergency Provider Internal Medicine Critical Care Medicine; PCP Family Medicine
DX: R07.89 Other chest pain (principal); C34.90 Malignant neoplasm of unspecified part of unspecified bronchus or lung; M54.12 Radiculopathy, cervical region; R06.00 Dyspnea, unspecified; I10 Essential (primary) hypertension; E78.5 Hyperlipidemia, unspecified; J44.9 Chronic obstructive pulmonary disease, unspecified; Z85.828 Personal history of other malignant neoplasm of skin; Z85.118 Personal history of other malignant neoplasm of bronchus and lung; Z87.891 Personal history of nicotine dependence
CPT/HCPCS: 36415; 71045; 71260; 72125; 74177; 80053; 83605; 83880; 84484; 85025; 85380; 85610; 85730; 93005; 96360; 96372; 99284; A9270; J1171; J7120; Q9967

== ENCOUNTER 2024-08-15 07:58 | Outpatient (CLI) | payer MEDICARE, MEDICAID, SELFPAY ==
--- NOTE | ~2024-08-15 | MM_ITS ---
EXAMINATION: MM screening lois BI w kristen HISTORY: Screening TECHNIQUE: Craniocaudal and mediolateral oblique 3-D tomosynthesis images were obtained and synthetic 2-D images were generated. CAD analysis was submitted and interpreted. COMPARISON: Comparison to multiple prior studies sequentially, with oldest reviewed study dated 08/26. BREAST PARENCHYMAL COMPOSITION: Not dense: There are scattered areas of fibroglandular density. FINDINGS: There is no evidence of suspicious mass, calcification, or architectural distortion to sugg est malignancy in either breast. There has been no suspicious interval change. IMPRESSION: 1. No mammographic evidence of malignancy. 2. Recommend routine screening mammography in one year. BI-RADS Category 1: Negative Reviewed, dictated and finalized at location B. TEGY ASSOCIATE
--- OUTSIDE RECORDS SUMMARY | 2024-08-15 08:04 | XMS_ITS | Clinical Summary ---
Author Organization [facility] Address [address] [place] [address]. 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 Gender Identity Not on file Sexual Orientation Not on file Plan of Treatment Health Maintenance Due Date Last Done Comments Colorectal Cancer Screening Colonoscopy (10 Years) 1954 Hepatitis C 1972 Mammogram Screening 1994 Zoster Vaccines (2 of 3) 11/14/2014 09/19/2014 Annual Medicare Wellness Visit 2019 Dexa Scan (General) 2019 COVID-19 Vaccine ( season) 2024 04/01/2022, 11/07/2020 Influenza Adult (#1) 2024 03/25/2021, 05/15/2019, 05/13/2019, Additional history exists Pneumococcal Vaccine: 65+ Years (3 of 3 - PPSV23 or PCV20) 06/02/2024 06/02/2019, 05/07/2017, 04/20/2016 RSV Immunization or 60+ Years (1 - 1-dose 75+ series) 2029 DTaP, Tdap and Td Vaccines (3 - Td or Tdap) 04/03/2030 04/03/2020, 02/13/2015 Meningococcal B Vaccine Aged Out No l onger eligible based on patient's age to complete this topic Meningococcal Vaccine Aged Out No gina lesley eligible based on patient's age to complete this topic RSV Immunizations Under 20 Months Aged Out No longer eligible based on patient's age to complete this topic Insurance [employer] Care Teams Slate Mixer Relationship Specialty Start Date End Date Long Flores MD [address] [place] [id number] PCP - General FAMILY PRACTICE 08/12/21
== END 2024-08-15 07:59 | disposition home or self-care (01) ==
LOC: CHSIMG 08:00
PROVIDERS: PCP Family Medicine; Visit Provider Internal Medicine Hematology
DX: Z12.31 Encounter for screening mammogram for malignant neoplasm of breast (principal)
CPT/HCPCS: 77063; 77067

== ENCOUNTER 2024-09-22 09:58 | Outpatient (CLI) | payer MEDICARE, MEDICAID, SELFPAY ==
--- NOTE | ~2024-09-22 | CT_ITS ---
Clinical Indication: Lung cancer CT Scan of the Chest, Abdomen, and Pelvis with Contrast: Technique: Contiguous sections were acquired throughout the chest, abdomen, and pelvis after intraven ous administration of 100 cc of Omnipaque 350. Dose reduction technique was used on this scan by ze marquis automated exposure control and iterative reconstruction technique. The dose-length product (DL P) was 335.79 mGy-cm. Comparison: 06/21/2024 Findings: There is no evidence of any significant mediastinal, hilar or axillary lymphadenopathy. The mediastin al soft tissues appear normal. No pericardial effusion. Minimal right pleural effusion present. Rounded area of consolidation or mass at the posterior medial right upper lobe is unchanged. Surrounding consolidation with air bronchograms is unchanged. Additio nal consolidation with air bronchograms extends into the medial portion of the right lower lobe. Ther e are minimal tree-in-bud opacities focally in the peripheral right middle lobe. Left lung clear. No left pleural effusion. The liver, spleen, pancreas, gallbladder, adrenals and kidneys are within normal limits. No evidence of aortic aneurysm. No lymphadenopathy. No bowel obstruction or bowel wall thickening. There is no evidence to suggest acute appendicitis. Urinary bladder is unremarkable. No pelvic mass seen. No ascites. Impression: Stable posterior right upper lobe mass with surrounding consolidation with air bronchograms, compatib le with biopsy-proven neoplasm, with surrounding post radiation change. Stability suggests quiescent or treated disease, though active malignancy not completely excluded. Minimal right pleural effusion. No evidence for metastatic disease. Reviewed, dictated and finalized at [facility]. Impression: Stable posterior right upper lobe mass with surrounding consolidation with air bronchograms, compatible with biopsy-proven neoplasm, with surrounding post rad iation change. Stability suggests quiescent or treated disease, though active m alignancy not completely excluded. Minimal right pleural effusion. No evidence for metastatic disease.
[2024-09-22 10:24] LABS: Estimated Glomerular Filt Rate 41
--- OUTSIDE RECORDS SUMMARY | 2024-09-22 10:38 | XMS_ITS ---
Author Organization [facility] Address [address] [place] [address] Care Team Providers Care Sky Diver Name Role Phone ALONSO YEN Unavailable [phone] Long Flores Unavailable Unavailable REASON FOR VISIT Palliation Medications Medication SIG (Take, Route, Frequency, Duration) Notes Start Date End Date Status ALPRAZolam for -2 *Pick strength-f orm from [employer] for eRX* 10/28/2022 Active AMLODIPINE for -2 *Reorder from [employer] for eRx and Interaction Alerts* 10/28/2022 Active Calcium for -2 *Pick strength-f orm from [employer] for eRX* 10/28/2022 Active PANTOPRAZOLE for -2 *Reorder from [employer] for eRx and Interaction Alerts* 10/28/2022 Active ATORVASTATIN for -2 *Reorder from [employer] for eRx and Interaction Alerts* 10/28/2022 Active Famotidine for -2 *Pick strength-f orm from [employer] for eRX* 10/28/2022 Active Potassium for -2 *Pick strength-f orm from [employer] for eRX* 10/28/2022 Active CYCLOBENZAPRINE for -2 *Reorder from [employer] for eRx and Interaction Alerts* 10/28/2022 Active Vital Signs Blood pressure systolic 138 mm Hg 11/08/19 24 Blood pressure diastolic 82 mm Hg 024 Heart Rate 89 /min 11/08/2023 Respiratory Rate 16 /min 11/08/2023 Height 64 in 11/08/2023 Weight 130 lbs 11/08/2023 BMI 22.31 kg/m2 11/08/2023 Height-cm 162.56 cm 11/08/2023 Weight-kg 58.97 kg 11/08/2023 Encounters Encounter Location Date Provider Diagnosis [facility] [address] [place] [address] 11/08/2023 ALONSO YEN Nail dystrophy L60.3 ; Other specified peripheral vascular diseases I73.89 and Tinea unguium B35.1 Assessments Encounter Date Diagnosis (ICD Code) Assessment Notes Treatment Notes Treatment Clinical Notes Section Notes 11/08/2023 Nail dystrophy (ICD-10 - L60.3) 11/08/2023 Other specified peripheral vascular diseases (ICD-10 - I73.89) We discussed preventative foot care. We discussed preventative foot hygiene. We instructed the patient on how to care for their feet, and to contact the office if any wounds develop or signs of infection arise. Trimmed 8 nails, without incident. The nails were debrided of all fungal material and debris. Debridement included a reduction in bulk of the nail by use of a sharp scallop cutter and/or rotary instrument. Reason for debridement include relief of pain, treatment of infection, temporary removal of an anatomic deformity such as onychauxis or onychocryptosis, exposure of subungual conditions for the purpose of treatment as well as diagnosis, and/or as a prophylactic measure to prevent further problems, such as subungual ulceration in an insensate patient with onychauxis. Antiseptic was applied. Debrided 2 nails without incident. 11/08/2023 Tinea unguium (ICD-10 - B35.1) 11/08/2023 Other Plan Of Treatment Treatment Notes Assessment Notes Other specified peripheral v ascular diseases We discussed preventative foot care. We discussed preventative foot hygiene. We instructed the patient on how to care for their feet, and to contact the office if any wounds develop or signs of infection arise. Trimmed 8 nails, without incident. The nails were debrided of all fungal material and debris. Debridement included a reduction in bulk of the nail by use of a sharp scallop cutter and/or rotary instrument. Reason for debridement include relief of pain, treatment of infection, temporary removal of an anatomic deformity such as onychauxis or onychocryptosis, exposure of subungual conditions for the purpose of treatment as well as diagnosis, and/or as a prophylactic measure to prevent further problems, such as subungual ulceration in an insensate patient with onychauxis. Antiseptic was applied. Debrided 2 nails without incident. Next Appt Details Follow Up: 2 Months, Reason: palliation Provider Name:ALONSO LEONG, 10/02/2024 03:00:00 PM, [address], [place], [address], Progress Notes * CHRISTY CÁRDENASEDOB: 5 (68 yo F)Acc No.[id number]:11/08/2023 Patient: HUNG ALTAMIRANO Provider: Allyssa Yen DPM :1955 A ge:68 Y S ex:Female Date:11/08/2023 Address:[address] [place], [place] [id number] Subjective: * Chief Complaints: * P alliation * HPI: N ails: The patient relates t o having difficulty trimming their nails, that some of their nails are thickened. * ROS: G eneral / Constitutional: Patient denies c hills, fatigue, fever, headache. ? E NT: Patient denies s neezing, sore throat. R espiratory: Patient denies c hest pain, cough, shortness of breath.? C ardiovascular: Patient denies c laudication, palpitations. ? G astrointestinal: Patient denies a bdominal pain, constipation, diarrhea, nausea, vomiting. N eurologic: Patient denies b urning. * Medical History: * Surgical History: * Hospitalization/Major Diagno stic Procedure: * Medications: T akingCalcium , Notes to Pharmacist: *Pick strength-form from Med[employer]pan for eRX*Famotidine , Notes to Pharmacist: *Pick strength-form from [employer] for eRX*Potassium , Notes to Pharmacist: *Pick strength-form from [employer] for eRX*CYCLOBENZAPRINE , Notes to Pharmacist: *Reorder from [employer] for eRx and Interaction Alerts*PANTOPRAZOLE , Notes to Pharmacist: *Reorder from [employer] for eRx and Interaction Alerts*ATORVASTATIN , Notes to Pharmacist: *Reorder from [employer] for eRx and Interaction Alerts*AMLODIPINE , Notes to Pharmacist: *Reorder from [employer] for eRx and Interaction Alerts*ALPRAZolam , Notes to Pharmacist: *Pick strength- form from Med[employer]pan for eRX*Taking Calcium , Notes to Pharmacist: *Pick strength-form from [employer]ispan for eRX*Taking Famotidine , Notes to Pharmacist: *Pick strength-form from [employer] for eRX*Taking Potassium , Notes to Pharmacist: *Pick strength-form from Medispan for eRX*Taking CYCLOBENZAPRINE , Notes to Pharmacist: *Reorder from [employer] for eRx and Interaction Alerts*Taking PANTOPRAZOLE , Notes to Pharmacist: *Reorder from [employer] for eRx and Interaction Alerts*Taking ATORVASTATIN , Notes to Pharmacist: *Reorder from [employer]pan for eRx and Interaction Alerts*Taking AMLODIPINE , Notes to Pharmacist: *Reorder from [employer] for eRx and Interaction Alerts*Taking ALPRAZolam , Notes to Pharmacist: *Pick strength-form from Medispan for eRX* Objective: * Vitals: H t: 64 in, Wt:130lbs, BP:138/82mm Hg, HR:89/min, BMI:22.31Index, RR:16/min, Wt- k.97 kg, Ht-cm: 162.56 cm, Body Surface Area: 1.63. * Examination: C lass Findings: Class C Findings (Q9) A bsent posterior tibial pulse right, Absent posterior tibial pulse left, Hair decreased or absent, Nail thickening, Pt complains of edema, Pt complains of cold feet. D ermatologic: Skin findings: c ool and dry, no open ulcerations or interdigital macerations. Nail pathology: b ilateral, digits 2-5, thickened, mildly dystrophic. Hallux nails bilateral are increased thickness and dystrophy with subungual debris.? V ascular: Dorsalis pedis pulse: 1 /4, bilateral. Posterior tibial pulse: 0 /4, bilateral. ? N eurologic: Gross sensation i ntact. M usculoskeletal: Joint range of motion: b ilateral, ankle, with decreased range of motion. Pain elicited with palpation of: n o noted pain on palpation. Pain elicited with range of motion: n o noted pain with range of motion. Assessment: * Assessment: 1. O ther specified peripheral vascular diseases - I73.89 (Primary) 2 . 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 T inea unguium - B35.1 Plan: * Treatment: * Procedure Codes: G 0127 TRIMMING DYSTROPHIC NAILS ANY #, Modifiers: Q9 51941 DEBRIDE NAIL, 1-5, Modifiers: Q9 * Follow Up: 2 Months (Reason: palliation) * Billing Information: * Visit Code: * Procedure Codes: G0127 TRIMMING DYSTROPHIC NAILS ANY #. Modifiers: Q9 58619 DEBRIDE NAIL, 1-5. Modifiers: Q9 * Sign off status: Completed true * Provider: Allyssa Yen DPM Date: 11/08/2023 Generated for Linden damon/Victor M/Anum on: 0 09/22/2024 10:38 AM CDT History and Physical Notes * HPI (History of Present Illness) Category Sub-Category Detail Notes Category Not es Nails The patient relates to having di fficulty trimming their nails, that some of their nails are thickened Examination Category Sub-Category Detail Notes Category Not es Dermatologic Skin findings: cool and dry, no open ulcerations or interdigital macerations Nail pathology: bilateral, digits 2- 5, thickened, mildly dystrophic. Hallux nails bilateral are increased thickness and dystrophy with subungual debris Neurologic Gross sensation intact Musculoskeletal Joint range of motion: bilateral , ankle, with decreased range of motion Pain elicited with palpation of: no note d pain on palpation Pain elicited with range of motion: no n oted pain with range of motion Vascular Dorsalis pedis pulse: 1/4, bilateral Posterior tibial pulse: 0/4, bilateral Class Findings Class C Findings (Q9) Absent pos terior tibial pulse right, Absent posterior tibial pulse left, Hair decreased or absent, Nail thickening, Pt complains of edema, Pt complains of cold feet
--- OUTSIDE RECORDS SUMMARY | 2024-09-22 10:38 | XMS_ITS | Patient Health Record ---
Author Organization [employer] [facility] Address [address] [place] [address] Care Team Providers Care Fire Equipment Operator Name Role Phone ALONSO YEN Unavailable [phone] Long Flores Unavailable Unavailable Allergies No Known Allergies Reason For Referral No Information Medications Medication SIG (Take, Route, Frequency, Duration) Notes Start Date End Date Status CYCLOBENZAPRINE for -2 *Reorder from [employer] for eRx and Interaction Alerts* 10/28/2022 Active Calcium for -2 *Pick strength-f orm from [employer] for eRX* 10/28/2022 Active Famotidine for -2 *Pick strength-f orm from [employer] for eRX* 10/28/2022 Active Potassium for -2 *Pick strength-f orm from [employer] for eRX* 10/28/2022 Active AMLODIPINE for -2 *Reorder from [employer] for eRx and Interaction Alerts* 10/28/2022 Active ALPRAZolam for -2 *Pick strength-f orm from [employer] for eRX* 10/28/2022 Active PANTOPRAZOLE for -2 *Reorder from [employer] for eRx and Interaction Alerts* 10/28/2022 Active ATORVASTATIN for -2 *Reorder from [employer] for eRx and Interaction Alerts* 10/28/2022 Active Problems Problem Type SNOMED Code ICD Code Onset Dates Problem Status W/U Status Risk Notes Problem Tinea unguium (033582790) Tinea unguium (B35.1) 3 Active confirmed Problem Peripheral vascular disease (302070500) Other specified peripheral vascular diseases (I73.89) 3 Active confirmed Problem Chronic obstructive pulmonary disease (70941164) Chronic obstructive pulmonary disease, unspecified (J44.9) 3 Active confirmed Problem Nail dystrophy (84251056) 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) 3 Active confirmed Problem Callosity (983045269) Corns and callosities (L84) 3 Active confirmed Problem History of malignant neoplasm (145908647) Personal history of malignant neoplasm, unspecified (Z85.9) 3 Active confirmed Problem Essential hypertension (28802411) Essential (primary) hypertension (I10) 3 Active confirmed Vital Signs Heart Rate 99 /min 04/24/2024 Respiratory Rate 16 /min 11/08/2023 Height-cm 162.56 cm 04/24/2024 Blood pressure diastolic 82 mm Hg 04/24/2024 Weight-kg 61.23 kg 04/24/2024 Height 64 in 04/24/2024 Blood pressure systolic 143 mm Hg 04/24/2024 Weight 135 lbs 04/24/2024 BMI 23.17 kg/m2 04/24/2024 Encounters Encounter Location Date Provider Diagnosis [address] [address] 11/08/2023 ALONSO COCKAYNE Nail dystrophy L60.3 ; Other specified peripheral vascular diseases I73.89 and Tinea unguium B35.[address] [address] 01/31/2024 ALONSO COCKAYNE Nail dystrophy L60.3 ; Other specified peripheral vascular diseases I73.89 and Tinea unguium B35.[address] [address] 04/24/2024 ALONSO COCKAYNE Nail dystrophy L60.3 ; Other specified peripheral vascular diseases I73.89 and Tinea unguium B35.1 Assessments Encounter Date Diagnosis (ICD Code) Assessment Notes Treatment Notes Treatment Clinical Notes Section Notes 11/08/2023 Nail dystrophy (ICD-10 - L60.3) 01/31/2024 Nail dystrophy (ICD-10 - L60.3) 04/24/2024 Nail dystrophy (ICD-10 - L60.3) 01/31/2024 Other specified peripheral vascular diseases (ICD-10 - [...] the nail by use of a sharp nail tech and/or rotary instrument. Reason for debridement include [...] was applied. Debrided 2 nails without incident. 04/24/2024 Other specified peripheral vascular diseases (ICD-10 - [...] the nail by use of a sharp nail tech and/or rotary instrument. Reason for debridement include [...] applied. Debrided 2 nails without incident. 11/08/2023 Other specified peripheral vascular diseases (ICD-10 [...] the nail by use of a sharp nail tech and/or rotary instrument. Reason for debridement include [...] incident. 11/08/2023 Tinea unguium (ICD-10 - B35.1) 01/31/2024 Tinea unguium (ICD-10 - B35.1) 04/24/2024 Tinea unguium (ICD-10 - B35.1) 11/08/2023 Other Plan Of Treatment Next Appt Details Provider Name:ALONSO Wild LEONG, 10/02/2024 03:00:00 PM, [address] [facility], [address], Insurance Providers Payer Name Payer Address Payer Phone Subscriber Number Group Number Insured Name Patient Relationship to Insured Coverage Start Date Coverage End Date [facility] [employer] [address] [address] [place] [address] [id number] HUNG BOYKIN Self - patient is the insured 3 [place] [employer] [address] [address] [place] [id number] HUNG BOYKIN Self - patient is the insured
--- OUTSIDE RECORDS SUMMARY | 2024-09-22 10:38 | XMS_ITS ---
Author Organization [facility] [facility] Address [address] [place] [address] Care Team Providers Care Feather Trimmer Name Role Phone ALONSO YEN Unavailable [phone] Long Flores Unavailable Unavailable REASON FOR VISIT Palliation Medications Medication SIG (Take, Route, Frequency, Duration) Notes Start Date End Date Status CYCLOBENZAPRINE for -2 *Reorder from [employer] for eRx and Interaction Alerts* 10/28/2022 Active AMLODIPINE for -2 *Reorder from [...] orm from [employer] for eRX* 10/28/2022 Active Vital Signs Blood pressure systolic 143 mm Hg 04/24/20 24 Blood pressure diastolic 82 mm Hg 024 Heart Rate 99 /min 04/24/2024 Height 64 in 04/24/2024 Weight 135 lbs 04/24/2024 BMI 23.17 kg/m2 04/24/2024 Height-cm 162.56 cm 04/24/2024 Weight-kg 61.23 kg 04/24/2024 Encounters Encounter Location Date Provider Diagnosis [facility] [address] [place] [address] 04/24/2024 ALONSO YEN Nail dystrophy L60.3 ; Other specified peripheral vascular diseases I73.89 and Tinea unguium B35.1 Assessments Encounter Date Diagnosis (ICD Code) Assessment Notes Treatment Notes Treatment Clinical Notes Section Notes 04/24/2024 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 Reason for [...] applied. Debrided 2 nails without incident. 04/24/2024 Tinea unguium (ICD-10 - B35.1) Plan Of Treatment Treatment Notes Assessment Notes [...] the nail by use of a sharp machine scallop cutter and/or rotary instrument. Reason for [...] palliation Provider Name:ALONSO LEONG, 10/02/2024 03:00:00 PM, [address], [place], [address], Progress Notes * NATALIE CÁRDENASOB: 5 (68 yo F)Acc No.[id number]:04/24/2024 Patient: HUNG ALTAMIRANO Provider: Allyssa Yen DPM :1955 A ge:68 Y S ex:Female Date:04/24/2024 Address:[address] [place] [address], [place] [address] Subjective: * Chief Complaints: * P alliation [...] Objective: * Vitals: H t: 64 in, Wt:135lbs, BP:143/82mm Hg, HR:99/min, BMI:23.17Index, Wt-k.23 kg, Ht-cm: 162.56 cm, Body Surface Area: 1.66. * Examination: C lass Findings: Class C [...] TRIMMING DYSTROPHIC NAILS ANY #, Modifiers: Q9 08066 DEBRIDE NAIL, 1-5, Modifiers: Q9 * Follow Up: 2 Months (Reason: palliation) * Billing Information: * Visit Code: * Procedure Codes: G0127 TRIMMING DYSTROPHIC NAILS ANY #. Modifiers: Q9 49477 DEBRIDE NAIL, 1-5. Modifiers: Q9 * Sign off status: Completed true * Provider: Allyssa Yen DPM Date: 1 Generated for Linden damon/Victor M/Anum on: 0 [...]
--- OUTSIDE RECORDS SUMMARY | 2024-09-22 10:38 | XMS_ITS | Clinical Summary ---
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 Gender Identity Not on file Sexual Orientation Not on file Plan of Treatment Health Maintenance Due Date Last Done Comments Colorectal Cancer Screening Colonoscopy (10 Years) 1955 Hepatitis C 1972 Mammogram Screening 1994 Zoster Vaccines (2 of 3) 11/14/2014 09/19/2014 Annual Medicare Wellness Visit 2019 Dexa Scan (General) 2019 COVID-19 Vaccine ( - season) 2024 04/01/2022, 11/07/2020 Influenza Adult (#1) [...] complete this topic Insurance [employer] Care Teams Graffiti Cleaner Relationship Specialty Start Date End Date Long Flores MD [address] [place] [phone] PCP - General FAMILY PRACTICE 08/12/21
--- OUTSIDE RECORDS SUMMARY | 2024-09-22 10:38 | XMS_ITS ---
Author Organization [employer] [facility] Address [address] [place] [address] Care Team Providers Care Continuity Clerk Name Role Phone ALONSO YEN Unavailable [phone] Long Flores Unavailable Unavailable REASON FOR VISIT Palliation Medications Medication SIG (Take, Route, Frequency, Duration) Notes Start Date End Date Status PANTOPRAZOLE for -2 *Reorder from [employer] for eRx and Interaction Alerts* 10/28/2022 Active CYCLOBENZAPRINE for -2 *Reorder from [employer] for eRx and Interaction Alerts* 10/28/2022 Active ALPRAZolam for -2 *Pick strength-f orm from [employer] for eRX* 10/28/2022 Active ATORVASTATIN for -2 *Reorder from [...] 10/28/2022 Active Vital Signs Blood pressure systolic 135 mm Hg 01/31/20 24 Blood pressure diastolic 65 mm Hg 024 Heart Rate 109 /min 01/31/2024 Height 64 in 01/31/2024 Weight 135 lbs 01/31/2024 BMI 23.17 kg/m2 01/31/2024 Height-cm 162.56 cm 01/31/2024 Weight-kg 61.23 kg 01/31/2024 Encounters Encounter Location Date Provider Diagnosis [facility] [address] [place] [address] 01/31/2024 ALONSO YEN Nail dystrophy L60.3 ; Other specified peripheral vascular diseases I73.89 and Tinea unguium B35.1 Assessments Encounter Date Diagnosis (ICD Code) Assessment Notes Treatment Notes Treatment Clinical Notes Section Notes 01/31/2024 Nail dystrophy (ICD-10 - L60.3) 01/31/2024 Other [...] the nail by use of a sharp fingernail sculptor and/or rotary instrument. Reason for debridement include [...] was applied. Debrided 2 nails without incident. 01/31/2024 Tinea unguium (ICD-10 - B35.1) Plan Of [...] the nail by use of a sharp fingernail sculptor and/or rotary instrument. Reason for debridement include [...] 10/02/2024 03:00:00 PM, [address], [place], [address], Progress Notes * NATALIE CÁRDENASOB: 5 (68 yo F)Acc No.[id number]:01/31/2024 Patient: HUNG ALTAMIRANO Provider: Allyssa Yen DPM :1955 A ge:68 Y S ex:Female Date:01/31/2024 Address:[address] [place] [address], [place] [address] Subjective: * Chief Complaints: * P alliation [...] * Vitals: H t: 64 in, Wt:135lbs, BP:135/65mm Hg, HR:109/min, BMI:23.17Index, Wt-k.23 kg, Ht-cm: 162.56 cm, Body [...] TRIMMING DYSTROPHIC NAILS ANY #, Modifiers: Q9 29271 DEBRIDE NAIL, 1-5, Modifiers: Q9 * Follow Up: 2 Months (Reason: palliation) * Billing Information: * Visit Code: * Procedure Codes: G0127 TRIMMING DYSTROPHIC NAILS ANY #. Modifiers: Q9 83441 DEBRIDE NAIL, 1-5. Modifiers: Q9 * Sign off status: Completed true * Provider: Allyssa Yen DPM Date: 0 01/31/2024 Generated for Linden damon/Victor M/Anum on: 0 [...]
== END 2024-09-22 09:59 | disposition home or self-care (01) ==
LOC: CHSIMG 09:59
PROVIDERS: PCP Family Medicine; Visit Provider Internal Medicine Hematology
DX: C34.90 Malignant neoplasm of unspecified part of unspecified bronchus or lung (principal); R91.8 Other nonspecific abnormal finding of lung field; J90 Pleural effusion, not elsewhere classified
CPT/HCPCS: 71260; 74177; Q9967

== ENCOUNTER 2025-02-13 12:13 | Outpatient (CLI) | payer MEDICARE, SELFPAY ==
--- NOTE | ~2025-02-13 | CT_ITS ---
Clinical Indication: Lung cancer CT Scan of the Chest, Abdomen, and Pelvis with Contrast: Technique: Contiguous sections were acquired throughout the chest, abdomen, and pelvis after intraven ous administration of 100 cc of Omnipaque 350. Dose reduction technique was used on this scan by ze marquis automated exposure control and iterative reconstruction technique. The dose-length product (DL P) was 626.98 mGy-cm. Comparison: 09/22/2024 Findings: There is no evidence of any significant mediastinal, hilar or axillary lymphadenopathy. The mediastin al soft tissues appear normal. There is no evidence of pleural or pericardial effusion. Stable consolidation with air bronchograms in the posterior medial right upper lobe and medial right lower lobe, most compatible treated disease/post radiation change The liver, spleen, pancreas, gallbladder, adrenals and kidneys are within normal limits. No evidence of aortic aneurysm. No lymphadenopathy. No bowel obstruction or bowel wall thickening. There is no evidence to suggest acute appendicitis. Urinary bladder is unremarkable. No pelvic mass seen. No ascites. Impression: Stable treated disease/post radiation change in the medial right lung, as detailed above. Reviewed, dictated and finalized at location . Impression: Stable treated disease/post radiation change in the medial right lung, as ana maria led above.
--- OUTSIDE RECORDS SUMMARY | 2025-02-13 12:17 | XMS_ITS | Patient Health Record ---
Author Organization [facility] Address [address] [place], [place] [address] Care Team Providers Care Application Security Specialist Name Role Phone Long Flores Unavailable Unavailable Reason For Referral No Information Plan Of Treatment No Information Insurance Providers Payer Name Payer Address Payer Phone Subscriber Number Group Number Insured Name Patient Relationship to Insured Coverage Start Date Coverage End Date Medicare Part B [facility] [address] [place] [phone] [id number] HUNG BOYKIN Self - patient is the insured
--- OUTSIDE RECORDS SUMMARY | 2025-02-13 12:17 | XMS_ITS | Clinical Summary ---
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 Gender Identity Not on file Sexual Orientation Not on file Plan of Treatment Health Maintenance Due Date Last Done Comments Colorectal Cancer Screening Colonoscopy (10 Years) 1954 Hepatitis C 1972 Mammogram Screening 1994 Zoster Vaccines (2 of 3) 11/14/2014 09/19/2014 Annual Medicare Wellness Visit 2019 Dexa Scan (General) 2019 COVID-19 Vaccine (3 - 2023-2 5 season) 2024 04/01/2022, 11/07/2020 RSV Immunization or 60+ Years (1 - 1-dose 75+ series) 2029 DTaP, Tdap and Td Vaccines ( 3 - Td or Tdap) 04/03/2030 04/03/2020, 02/13/2015 Pneumococcal Vaccine: 50+ Years Completed 06/02/2019, 05/07/2017, 04/20/2016 Meningococcal B Vaccine Aged Out No l onger eligible based on patient's age to complete this topic Meningococcal Vaccine Aged Out No gina lesley eligible based on patient's age to complete this topic RSV Immunizations Under 20 Months Aged Out No longer eligible b ased on patient's age to complete this topic Insurance [employer] Care Teams Letterpress Setter Relationship Specialty Start Date End Date Long Flores MD [address] [place] [id number] PCP - General FAMILY PRACTICE 08/12/21
--- OUTSIDE RECORDS SUMMARY | 2025-02-13 12:18 | XMS_ITS | Patient Health Record ---
Author Organization [email or web address] Address [address] [place] [address] Care Team Providers Care Patient Registration Clerk Name Role Phone ALONSO YEN Unavailable [phone] Long Flores Unavailable Unavailable Allergies No Known Allergies Reason For Referral No Information Medications Medication SIG (Take, Route, Frequency, Duration) Notes Start Date End Date Status ALPRAZolam ; Duration: -2 *Pick strength-f orm from [employer] for eRX* 10/28/2022 Active AMLODIPINE ; Duration: -2 *Reorder from [employer] for eRx and Interaction Alerts* 10/28/2022 Active Calcium ; Duration: -2 *Pick strength-f orm from [employer] for eRX* 10/28/2022 Active Potassium ; Duration: -2 *Pick strength-f orm from [employer] for eRX* 10/28/2022 Active Famotidine ; Duration: -2 *Pick strength-f orm from [employer] for eRX* 10/28/2022 Active CYCLOBENZAPRINE ; Duration: -2 *Reorder from [employer] for eRx and Interaction Alerts* 10/28/2022 Active ATORVASTATIN ; Duration: -2 *Reorder from [employer] for eRx and Interaction Alerts* 10/28/2022 Active PANTOPRAZOLE ; Duration: -2 *Reorder from [employer] for eRx and Interaction Alerts* 10/28/2022 Active Problems Problem Type SNOMED Code ICD Code Onset Dates Problem Status W/U Status Risk Notes Problem Tinea unguium (982257697) Tinea unguium (B35.1) 3 Active confirmed Problem Peripheral vascular disease (714093153) Other specified peripheral vascular diseases (I73.89) 3 Active confirmed Problem Chronic obstructive pulmonary disease (61064176) Chronic obstructive pulmonary disease, unspecified (J44.9) 3 Active confirmed Problem Nail dystrophy (36529125) 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) Active confirmed Problem Callosity (276923589) Corns and callosities (L84) Active confirmed Problem History of malignant neoplasm (681808818) Personal history of malignant neoplasm, unspecified (Z85.9) 3 Active confirmed Problem Essential hypertension (70901584) Essential (primary) hypertension (I10) 3 Active confirmed Vital Signs Heart Rate 106 /min 01/01/2025 Height-cm 162.56 cm 01/01/2025 Blood pressure diastolic 92 mm Hg 01/01/2025 Weight-kg 58.97 kg 01/01/2025 Height 64 in 01/01/2025 Blood pressure systolic 143 mm Hg 01/01/2025 Weight 130 lbs 01/01/2025 BMI 22.31 kg/m2 01/01/2025 Encounters Encounter Location Date Provider Diagnosis [facility] [id number] [place] [id number] 04/24/2024 ALONSO COCKAYNE Nail dystrophy L60.3 ; Other specified peripheral vascular diseases I73.89 and Tinea unguium B35.1 [facility] [address] [place] [address] 10/02/2024 ALONSO COCKAYNE Nail dystrophy L60.3 ; Other specified peripheral vascular diseases I73.89 and Tinea unguium B35.1 [facility] [id number] [place] [phone] 01/01/2025 ALONSO COCKAYNE Nail dystrophy L60.3 ; Other specified peripheral vascular diseases I73.89 and Tinea unguium B35.1 Assessments Encounter Date Diagnosis (ICD Code) Assessment Notes Treatment Notes Treatment Clinical Notes Section Notes 04/24/2024 Nail dystrophy (ICD-10 - L60.3) 10/02/2024 Nail dystrophy (ICD-10 - L60.3) 01/01/2025 Nail dystrophy (ICD-10 - L60.3) 10/02/2024 Other specified peripheral vascular diseases (ICD-10 - [...] the nail by use of a sharp ream cutter and/or rotary instrument. Reason for debridement [...] was applied. Debrided 2 nails without incident. 01/01/2025 Other specified peripheral vascular diseases (ICD-10 - [...] the nail by use of a sharp ream cutter and/or rotary instrument. Reason for debridement [...] the nail by use of a sharp ream cutter and/or rotary instrument. Reason for debridement [...] incident. 04/24/2024 Tinea unguium (ICD-10 - B35.1) 01/01/2025 Tinea unguium (ICD-10 - B35.1) 10/02/2024 Tinea unguium (ICD-10 - B35.1) Plan Of Treatment Next Appt Details Provider Name:ALONSO Wild LEONG, 03/19/2025 11:45:00 AM, [address] [place], [address], Insurance Providers Payer Name Payer Address Payer Phone Subscriber Number Group Number Insured Name Patient Relationship to Insured Coverage Start Date Coverage End Date [facility] CHRONIC COMPLETE [employer]URE [address] [address] [place] [address] [phone] [id number] HUNG BOYKIN Self - patient is the insured 3 [place] [employer] OF PUBLIC A[employer] [address] [address] [place] [address] [phone] [id number] HUNG BOYKIN Self - patient is the insured
[2025-02-13 12:41] LABS: Estimated Glomerular Filt Rate 56
== END 2025-02-13 12:14 | disposition home or self-care (01) ==
PROVIDERS: PCP Family Medicine; Visit Provider Internal Medicine Hematology
DX: C34.12 Malignant neoplasm of upper lobe, left bronchus or lung (principal); Z92.3 Personal history of irradiation
CPT/HCPCS: 36415; 71260; 74177; 82565; Q9967

== ENCOUNTER 2025-02-28 13:25 | Emergency (ER) | payer MEDICARE, SELFPAY ==
--- NOTE | ~2025-02-28 | CT_ITS ---
EXAM: CT brain wo con - 02/28/2025 13:55 CDT History: 69 years old Female with gait unsteadiness. Rule out metastatic lesion COMPARISON: None available. PROCEDURE: CT of the head without contrast. Axial, sagittal and coronal reformatted planes were evaluated. Automatic exposure control was used for this study. FINDINGS: BRAIN PARENCHYMA: No acute hemorrhage. No mass effect or herniation. Lacunar infarct in the left basal ganglia. Rivas-white matter differentiation is maintained. Mild chronic volume loss. Scattered hypodensities in subcortical and periventricular white matter, likely representing chronic microvascular ischemic changes in this age group. Atherosclerotic calcification of the intracranial vessels is noted. VENTRICLES/ EXTRA-AXIAL SPACES: No hydrocephalus or extra-axial fluid collection. EXTRACRANIAL STRUCTURES: No calvarial fracture. IMPRESSION: No evidence for acute intracranial hemorrhage or calvarial fracture. Reviewed, dictated and finalized at location A.
[2025-02-28 13:34] VITALS: BP 135/74; PULSE 112; RESP 16; TEMP 36.4; O2SAT 96
--- NOTE | 2025-02-28 13:34 | ED.DIZZY ---
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 She had recurrence of the tumor in the right upper lobe in January of 2024 for which she received RT. she received her last RT in January of last year. The patient presented to her oncologist Dr. Sharif with 1 month history of -- unsteady gait. the patient feels it is drunk while walking. patient is running into Objects. Patient went to her oncologist's office where he noted discoordination . she has a history of peripheral neuropathy which antedates her lung cancer. Patient was noted to have a positive Romberg sign. The oncologist was concerned about a possible metastatic lesion to the brain, for which he had the patient come to the ED for further evaluation. Denied any fever or chills. No headache, vomiting or visual changes patient had been on B12 which she quit taking 4 months ago. No recent ear infections or hearing difficulty MD elicited complaint: dizziness and disequilibrium Onset (ago): month(s) ( 1 month) Timing: gradual onset Description: off-balance, difficulty walking and ongoing History of similar symptoms: No Exacerbating factors: nothing Relieving factors: nothing Associated symptoms: denies other symptoms Associated neuro symptoms: gait ataxia Related Data Home Medications ?Medication ?Instructions ?Recorded ?Confirmed ?Last Taken ?Type amlodipine 5 mg tablet 5 mg PO QAM 10/07/21 08/25/24 08/24/23 07:00 History famotidine 20 mg tablet 20 mg PO 10/07/21 08/25/24 08/23/23 History pantoprazole 40 mg tablet,delayed 40 mg PO DAILY 10/07/21 08/25/24 08/23/23 History release potassium 99 mg tablet 99 mg PO DAILY 10/07/21 08/25/24 08/23/23 History cyclobenzaprine 5 mg tablet 5 mg PO TID 07/14/22 08/25/24 08/23/23 History rosuvastatin 20 mg tablet 20 mg PO DAILY 10/05/23 02/28/25 Unknown History albuterol sulfate 90 mcg/actuation 1 puff inhalation Q4H PRN 02/25/24 08/25/24 Unknown History aerosol inhaler shortness of breath or wheezing calcium 600 mg (as 1 tablet PO DAILY 06/21/24 08/25/24 Unknown History carbonate)-vitamin D3 5 mcg (200 unit) tablet (Calcium 600 + D(3)) fluticasone fur. 100 mcg-umeclid 1 inh inhalation DAILY 02/28/25 Unknown History 62.5 mcg-vilant 25 mcg inhalat.powder (Trelegy Ellipta) vitamins A,C,W-bkmk-gbdhum 2,148 2 tablet PO BID 02/28/25 Unknown History mcg-113 mg-45 mg-17.4 mg tablet (Eye Multivitamin) Allergies Allergy/AdvReac Type Severity Reaction Status Date / Time adhesive tape AdvReac SKIN Verified 02/28/25 13:59 IRRITATION Review of Systems Constitutional: Constitutional: Reports as per HPI and Reports no additional constitutional complaints Eyes: Eyes: Reports as per HPI and Reports no additional eye complaints ENT: Reports system reviewed and no additional complaints, except as documented and Reports as per HPI Cardiovascular: Cardiovascular: Reports as per HPI and Reports no additional cardiovascular complaints Respiratory: Respiratory: Reports as per HPI and Reports no additional respiratory complaints Gastrointestinal: Gastrointestinal: Reports as per HPI and Reports no additional gastrointestinal complaints Genitourinary: Genitourinary: Reports no additional female genitourinary complaints and Reports as per HPI Musculoskeletal: Musculoskeletal: Reports no additional musculoskeletal complaints and Reports as per HPI Integumentary/Breasts: Skin/Breast: Reports system reviewed and no additional complaints, except as docu and Reports as per HPI Neurologic: Reports system reviewed and no additional complaints, except as documented and Reports as per HPI Comments: finger nose test is unremarkable. Unable to do tandem walking. Psychiatric: Psychiatric: Reports no additional psychiatric complaints and Reports as per HPI Endocrine: Endocrine: Reports no additional endocrine complaints and Reports as per HPI Hematologic/Lymphatic: Hematologic/Lymphatic: Reports no additional hematologic/lymphatic complaints and Reports as per HPI Allergic/Immunologic: Allergic/Immunologic: Reports no additional allergic/immunologic complaints and Reports as per HPI [facility] Past Medical History Medical History Chronic lower back pain Peripheral neuropathy MARCY (obstructive sleep apnea) intolerant to PAP Skin cancer Lung cancer COPD (chronic obstructive pulmonary disease) Surgical History Surgical History H/O: hysterectomy Social History Social History Smoking status: Former smoker Tobacco type: e-cigarettes/vaping Smoking end date: 04/11/23 Additional smoking assessment comments: STATES 1PK/WEEK/SINCE AGE 11 Alcohol intake: current Alcohol use details: STATES VERY RARELY - COUPLE TIMES /6 MONTHS Substance use: never Substance use type: does not use Do You Feel Safe in your Home?: Yes Lack of Transportation: No Lack of Food: Never True Current Housing: I Have Housing Concerned About Future Housing: No Difficulty Paying Gas/Electric Bills: No Difficulty Paying for Meds: No Currently Unemployed: No Education: High School Diploma/GED Difficulty w/ Childcare or Family Care: No Spiritual care concerns: No Exam Narrative: Vitals are stable Const: Orientation/consciousness: patient oriented x3 Limitations: no limitations HENMT: Head: normal to inspection Ears: TM's normal bilaterally and EAC's normal Face/Nose/Sinus: Normal external nose present Face and sinus: normal facial exam Mouth: Yes Normal oral and palatal mucosa present Throat: posterior oropharynx normal Eyes: Conjunctivae: conjunctivae normal Pupils: Equal, round and reactive pupils present EOM: EOMs intact bilaterally Direct Ophthalmoscopy: no photophobia Neck: Neck: normal visual inspection, no lymphadenopathy and no meningeal signs Chest: Chest palpation & inspection: normal inspection of the chest Resp: Effort & Inspection: normal respiratory effort Auscultation: clear to auscultation bilaterally Cardio: Rate: regular rate Rhythm: regular rhythm GI: GI Palp: Yes Soft to palpation Auscultation: normal bowel sounds Other: no tenderness/rigidity / rebound. Back/Spine/Pelvis: Back: no CVA tenderness Skin: General skin exam: normal color Rashes: no rashes Wounds: no wounds Neuro: General: patient oriented x3, moves all extremities, no meningeal signs, no focal motor deficits and CN's II-XI intact bilaterally Cranial nerves: Yes Nystagmus not present Speech: normal speech Gait exam (Neuro): Normal gait present Extrem: General: normal to inspection and no clubbing, cyanosis or edema Psych: Mental Status: mental status grossly normal Affect: normal affect Attitude: cooperative Course Course Emergency Course: Incoordination with gait instability-- rule out metastatic lesion-- CT of the head did not show any acute findings. call Dr. Sharif her oncologist and let him know that she left AMA. CT of the head did not show any acute findings. I declare that I personally explained to the patient the risks and consequences involved in leaving this facility at this time. The benefits of continued treatment and/or hospitalization, alternatives if any, to continue treatment and/or hospitalization, if applicable I have not identified any psychosis, drugs, mental illness a medical illness that alters decision making Vital Signs Vital signs: Vital Signs Temperature 36.4 C 02/28/25 13:34 Pulse Rate 112 H 02/28/25 13:34 Respiratory Rate 16 02/28/25 13:34 Blood Pressure 135/74 02/28/25 13:34 Pulse Oximetry 96 02/28/25 13:34 Oxygen Delivery Room Air 02/28/25 13:34 Temperature 36.4 C 02/28/25 13:34 Pulse Rate 112 H 02/28/25 13:34 Respiratory Rate 16 02/28/25 13:34 Blood Pressure 135/74 02/28/25 13:34 Pulse Oximetry 96 02/28/25 13:34 Oxygen Delivery Room Air 02/28/25 13:34 MDM - Dizziness MDM Narrative Medical decision making narrative: Incoordination/ gait instability Medical Records Attestation: I reviewed the patient's medical records. Lab Data Attestation: I reviewed the patient's lab results. 02/28/25 14:03 02/28/25 14:03 Labs: Lab Results 02/28/25 Range/Units 14:03 WBC 9.8 (4.8-10.8) K/mm3 RBC 4.23 (4.20-5.40) M/mm3 Hgb 12.1 (11.7-13.8) g/dL Hct 37.0 (35.0-42.0) % MCV 87.5 (78.0-102.0) fL MCH 28.6 (27.0-31.0) pg MCHC 32.7 (32-36) g/dL RDW 14.3 (11.6-14.4) % Plt Count 311 (150-420) K/mm3 MPV 9.0 L (9.2-11.8) fl Immature Gran % (Auto) 0.4 H (0.0-0.0) % Neut % (Auto) 78.3 H (50.0-70.0) % Lymph % (Auto) 13.5 L (18.0-42.0) % [place] % (Auto) 5.8 (2.0-11.0) % Eos % (Auto) 1.4 (1.0-6.0) % Baso % (Auto) 0.6 (0.0-1.0) % Lymph # (Auto) 1.33 (1.10-4.50) K/mm3 [place] # (Auto) 0.57 (0.10-0.90) K/mm3 Eos # (Auto) 0.14 (0.02-0.50) K/mm3 Baso # (Auto) 0.06 (0.00-0.10) K/mm3 Abs Immat Gran (auto) 0.04 H (0.00-0.00) K/mm3 Absolute Neuts (auto) 7.70 H (1.70-7.20) K/mm3 Absolute Nucleated RBC 0.00 (0.00-0.00) K/mm3 Nucleated RBC % 0.0 (0-0.0) % Sodium 138 (137-145) mmol/L Potassium 3.8 (3.4-5.0) mmol/L Chloride 104 (98-107) mmol/L Carbon Dioxide 23 (22-30) mmol/L Anion Gap 11 (4-12) mmol/L BUN 19 H (7-17) mg/dL Creatinine 1.03 H (0.7-1.0) mg/dL Estim Creat Clear Calc 39 ml/min Estimated GFR 53 L (59 - ) Glucose 109 (65-110) mg/dL Calculated Osmolality 289 (285-295) mOsm/kg Lactic Acid 1.8 (0.4-2.0) mmol/L Calcium 9.8 (8.4-10.2) mg/dL Total Bilirubin 0.5 (0.2-1.3) mg/dL AST 30 (14-36) U/L ALT 19 (6-35) U/L Alkaline Phosphatase 119 (38-126) U/L Total Creatine Kinase 222 H (30-135) U/L Total Protein 7.5 (6.3-8.2) g/dL Albumin 4.7 (3.5-5.1) g/dL Vitamin B12 Pending Discharge Plan Discharge Clinical Impression: Gait instability, Incoordination Patient Disposition: Left Against Medical Advice Condition: Unstable Patient Language: Gibraltarian Prescriptions: No Action calcium carbonate-vitamin D3 [Calcium 600 + D(3)] 600 mg-5 mcg (200 unit) tablet 1 tablet PO DAILY Trelegy Ellipta 100-62.5-25 mcg blister with device 1 inh inhalation DAILY Eye Multivitamin 2,148 mcg-113 mg-45 mg-17.4mg tablet 2 tablet PO BID Rx Instructions: administer with AM and PM meals rosuvastatin 20 mg tablet 20 mg PO DAILY albuterol sulfate 90 mcg/actuation HFA aerosol inhaler 1 puff inhalation Q4H PRN (Reason: shortness of breath or wheezing) cyclobenzaprine 5 mg tablet 5 mg PO TID amlodipine 5 mg tablet 5 mg PO QAM potassium 99 mg Tablet 99 mg PO DAILY famotidine 20 mg tablet 20 mg PO HS pantoprazole 40 mg tablet,delayed release (DR/EC) 40 mg PO DAILY Follow-up/Referrals: Sandra,MD Long [Primary Care Provider, Family Practice] Time of Disposition: 14:38
--- OUTSIDE RECORDS SUMMARY | 2025-02-28 13:44 | XMS_ITS | Patient Health Record ---
Author Organization [facility] Address [address] [place], [place] [id number] Care Team Providers Care Audio Installer Name Role Phone Long Flores Unavailable Unavailable Reason For Referral No Information Plan Of Treatment No Information Insurance Providers Payer Name Payer Address Payer Phone Subscriber Number Group Number Insured Name Patient Relationship to Insured Coverage Start Date Coverage End Date Medicare Part B [facility] [address] [place] [phone] [id number] HUNG BOYKIN Self - patient is the insured
--- OUTSIDE RECORDS SUMMARY | 2025-02-28 13:45 | XMS_ITS | Patient Health Record ---
Author Organization [facility] Address [address] [place] [address] Care Team Providers Care Nursing Home Assistant Name Role Phone ALONSO YEN Unavailable [phone] Long Flores Unavailable Unavailable Allergies No Known [...] W/U Status Risk Notes Problem Tinea unguium (173107710) Tinea unguium (B35.1) 3 Active confirmed Problem Peripheral vascular disease (705930403) Other specified peripheral vascular diseases (I73.89) 3 Active confirmed Problem Chronic obstructive pulmonary disease (37713353) Chronic obstructive pulmonary disease, unspecified (J44.9) 3 Active confirmed Problem Nail dystrophy (42850480) 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) Active confirmed Problem Callosity (806634343) Corns and callosities (L84) Active confirmed Problem History of malignant neoplasm (996333185) Personal history of malignant neoplasm, unspecified (Z85.9) 3 Active confirmed Problem Essential hypertension (71687107) Essential (primary) hypertension (I10) 3 Active confirmed Vital Signs Heart Rate 106 /min 01/01/2025 Height-cm 162.56 cm 01/01/2025 Blood pressure diastolic 92 mm Hg 01/01/2025 Weight-kg 58.97 kg 01/01/2025 Height 64 in 01/01/2025 Blood pressure systolic 143 mm Hg 01/01/2025 Weight 130 lbs 01/01/2025 BMI 22.31 kg/m2 01/01/2025 Encounters Encounter Location Date Provider Diagnosis [facility] [id number] [place] [phone] 04/24/2024 ALONSO COCKAYNE Nail dystrophy L60.3 ; Other specified peripheral vascular diseases I73.89 and Tinea unguium B35.1 [facility] [address] [place] [address] 10/02/2024 ALONSO COCKAYNE Nail dystrophy L60.3 ; Other specified peripheral vascular diseases I73.89 and Tinea unguium B35.1 [facility] [id number] [place] [phone] 01/01/2025 ALONSO COCKAYNE Nail dystrophy L60.3 ; [...] nail by use of a sharp nail kegger and/or rotary instrument. Reason for debridement include [...] nail by use of a sharp nail kegger and/or rotary instrument. Reason for debridement include [...] nail by use of a sharp nail kegger and/or rotary instrument. Reason for debridement include [...] Provider Name:ALONSO Wild LEONG, 03/19/2025 11:45:00 AM, [address] [place], [address], Insurance Providers Payer Name Payer Address Payer Phone Subscriber Number Group Number Insured Name Patient Relationship to Insured Coverage Start Date Coverage End Date [facility] CH[employer]IC COMPLETE [employer]URE [address] [address] [place] [id number] HUNG BOYKIN Self - patient is the insured [address] [place] [employer] PUBLIC A[employer] [address] [address] [place] [id number] HUNG BOYKIN Self - patient is the insured
--- NOTE | 2025-02-28 13:54 | ECG_ITS ---
Test Date: 2025-02-28 14:11:51 Measurements Intervals Clark Rate: 103 P: 64 WI: 199 QRS: 35 QRSD: 72 T: 41 QT: 317 QTc: 415 Interpretive Statements SINUS TACHYCARDIA BASELINE ARTIFACT- II, III, AVR, AVL, AVF, V1-V6 BORDERLINE ECG Compared to ECG 06/21/2024 10:19:33 No significant changes Electronically Signed On 02-28-2025 14:16:29 CDT by Jitendra Davis D.O.
[2025-02-28 14:07] LABS: Hematocrit 37.0 % (35.0-42.0); Hemoglobin 12.1 g/dL (11.7-13.8); Immature Granulocyte Percent A 0.4 % (0.0-0.0); Lymphocytes Absolute Auto 1.33 K/mm3 (1.10-4.50); Mean Corpuscular HGB Conc 32.7 g/dL (32-36); Mean Corpuscular Hemoglobin 28.6 pg (27.0-31.0); Mean Corpuscular Volume 87.5 fL (78.0-102.0); Nucleated Red Blood Cells Absolute Auto 0.00 K/mm3 (0.00-0.00); Nucleated Red Blood Cells Perc 0.0 % (0-0.0); Platelet Count Result 311 K/mm3 (150-420); Red Blood Count 4.23 M/mm3 (4.20-5.40); White Blood Count 9.8 K/mm3 (4.8-10.8)
[2025-02-28 14:19] LABS: Alanine Aminotransferase 19 U/L (6-35); Albumin Level 4.7 g/dL (3.5-5.1); Alkaline Phosphatase 119 U/L (38-126); Anion Gap 11 mmol/L (4-12); Aspartate Amino Transferase 30 U/L (14-36); Bilirubin,Total 0.5 mg/dL (0.2-1.3); Blood Urea Nitrogen 19 mg/dL (7-17); Calcium 9.8 mg/dL (8.4-10.2); Carbon Dioxide 23 mmol/L (22-30); Chloride 104 mmol/L (98-107); Creatine Kinase 222 U/L (30-135); Estimated CRCL calculation 39 ml/min; Estimated Glomerular Filt Rate 53; Glucose 109 mg/dL (65-110); Osmolality Calculated 289 mOsm/kg (285-295); Potassium 3.8 mmol/L (3.4-5.0); Sodium 138 mmol/L (137-145); Total Protein 7.5 g/dL (6.3-8.2)
--- NOTE | 2025-02-28 14:20 | PC.NURSE ---
1418 pt left ama had to go get her grand daughter and take her and her dog to the vet stated dog was very sick pt was a/o x4 Dr Lynne aware
[2025-02-28 14:29] LABS: Lipase 95 U/L (23-300)
[2025-02-28 14:39] LABS: NT Pro B Type Natriuretic Pept 62 pg/mL (19.9-100)
--- NOTE | 2025-02-28 14:48 | PC.NURSE ---
dr harris called results of CT to dr Sharif
[2025-02-28 15:08] LABS: Vitamin B12 650.0 pg/mL (239-931)
== END 2025-02-28 14:18 | disposition left against medical advice (07) ==
LOC: CHSED 14:24
PROVIDERS: Emergency Provider Internal Medicine Critical Care Medicine; PCP Family Medicine
DX: R26.89 Other abnormalities of gait and mobility (principal); R27.8 Other lack of coordination; R00.0 Tachycardia, unspecified; I10 Essential (primary) hypertension; E78.5 Hyperlipidemia, unspecified; J44.9 Chronic obstructive pulmonary disease, unspecified; Z85.828 Personal history of other malignant neoplasm of skin; Z85.118 Personal history of other malignant neoplasm of bronchus and lung; Z87.891 Personal history of nicotine dependence
CPT/HCPCS: 36415; 70450; 80053; 82550; 82607; 83605; 83690; 83880; 85025; 93005; 99284

== ENCOUNTER 2025-07-03 08:53 | Outpatient (CLI) | payer MEDICARE, SELFPAY ==
--- OUTSIDE RECORDS SUMMARY | 2025-06-04 07:00 | XMS_ITS ---
Author Organization [employer] [facility] [employer] Address [address] [place] [address] Care Team Providers Care Poured Pipe Maker Name Role Phone ALONSO YEN Unavailable [phone] Long Flores Unavailable Unavailable Encounters Encounter Location Date Provider Diagnosis [address] [address] 06/04/2025 ALONSO YEN Plan Of Treatment Next Appt Details Provider Name:ALONSO LEONG, 08/20/2025 03:15:00 PM, [id number] [place] [address], [id number], Progress Notes * NATALIE CÁRDENASOB: (69 yo F)Acc No.[id number]:06/04/2025 Patient: HUNG ALTAMIRANO Provider: Allyssa Yen DPM :1955 A ge:69 Y S ex:Female Date:06/04/2025 Address:[id number] Subjective: * Chief Complaints: * * Medical History: Objective: * Vitals: Assessment: Plan: * Treatment: * Billing Information: * Visit Code: * Procedure Codes: * Electronic signature of KALI YEN DPM on 07/03/2025 at 09:07 AM FOOD SERVICE COORDINATOR Sign off status: Pending * Provider: Allyssa Yen DPM Date: 08/04/2024 Generated for Linden damon/Victor M/eTransmitting on: 09/03/2024 09:07 AM FOOD SERVICE COORDINATOR
--- NOTE | ~2025-07-03 | DEXA_ITS ---
Bone Density Report Name: HUNG CÁRDENAS Age: 69 Sex: Female Ethnicity: White Date of : 1955 Indication: postmenopausal; screening for osteoporosis; cancer; hysterectomy; Referring Provider: SandraLong Flores Study: Bone densitometry was performed. Exam Date: July 03, 2025 Accession number: [id number] Bone Density: Region BMD T-score Z-score Classification AP Spine(L3, L4) 0.871 -2.1 0.2 Osteopenia Femoral Neck (Left) 0.699 -1.4 0.5 Osteopenia Total Hip (Left) 0.869 -0.6 0.9 Normal Femoral Neck (Right) 0.653 -1.8 0.1 Osteopenia Total Hip (Right) 0.834 -0.9 0.7 Normal Femoral Neck Mean 0.676 -1.6 0.3 Osteopenia Total Hip Mean 0.851 -0.7 0.8 Normal World Health Organization criteria for BMD impression classify patients as: Normal (T-score at or above -1.0), Osteopenia (T-score between -1.0 and -2.5), or Osteoporosis (T-score at or below -2.5). 10-year Fracture Risk(1): Major Osteoporotic Fracture 11% Hip Fracture 3.0% Reported Risk Factors: [place] (), Neck BMD=0.653, BMI=22.8, smoking (1) FRAX(R) Version 3.08. Fracture probability calculated for an untreated patient. Fracture probability may be lower if the patient has received treatment. Clinical Information Provided by Patient: Smokes Has used the following medications: Vitamin D, Calcium Has the following medical conditions: Cancer, Hysterectomy Patient maximum height was 64 Menopause Age: 29 No regular weight bearing exercise Drinks caffeinated beverages Onset of menses at age 13 Number of children 3 Impression: The patient has low bone mass, based on the Total Spine T-score. The patient has risk factors, including: smoking. Discussion: BONE DENSITY IS LOW AT ONE OR MORE SKELETAL SITES. This patient's lowest T-score is low at one or more skeletal sites. It meets the World Health Organization's (WHO) criteria for ?low bone mass? (T-score between -1.0 and -2.5). The patient's 10-year risk of fracture as calculated by FRAX is less than the threshold where pharmacological therapy is recommended by the National Osteoporosis Foundation (NOF). However, all treatment decisions require clinical judgment and consideration of individual patient factors, including patient preferences, comorbidities, previous drug use, risk factors not captured in the FRAX model (e.g., frailty, falls, vitamin D deficiency, increased bone turnover, interval significant decline in bone density) and possible under or overestimation of fracture risk by FRAX. The patient should follow a healthful lifestyle (good nutrition with adequate calcium and vitamin D, and appropriate weight-bearing exercise). Follow-Up: Consider repeating this study in 2 to 3 years to reassess this patient's status, or sooner if there is some new clinical indication. Reported by: MARION on 07/11/2025 8:21:00 AM. Reviewed, dictated and finalized at location A.
--- OUTSIDE RECORDS SUMMARY | 2025-07-03 09:07 | XMS_ITS | Patient Health Record ---
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 Javascript Html Css Name Role Phone ALONSO YEN Unavailable [phone] Long Flores Unavailable Unavailable Allergies No Known Allergies Reason For Referral No Information Medications Medication SIG (Take, Route, Frequency, Duration) Notes Start Date End Date Status AMLODIPINE ; Duration: -2 *Reorder from [employer] for eRx and Interaction Alerts* 10/28/2022 Active ALPRAZolam ; Duration: -2 *Pick strength-f orm from [employer] for eRX* 10/28/2022 Active Calcium ; Duration: -2 *Pick [...] W/U Status Risk Notes Problem Tinea unguium (491028922) Tinea unguium (B35.1) 3 Active confirmed Problem Peripheral vascular disease (872910475) Other specified peripheral vascular diseases (I73.89) 3 Active confirmed Problem Chronic obstructive pulmonary disease (82088125) Chronic obstructive pulmonary disease, unspecified (J44.9) 3 Active confirmed Problem 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 Problem Callosity (792995500) Corns and callosities (L84) 3 Active confirmed Problem History of malignant neoplasm (875890864) Personal history of malignant neoplasm, unspecified (Z85.9) 3 Active confirmed Problem Essential hypertension (43477589) Essential (primary) hypertension (I10) 3 Active confirmed Vital Signs Heart Rate 106 /min 03/19/2025 Height-cm 162.56 cm 03/19/2025 Blood pressure diastolic 78 mm Hg 03/19/2025 Weight-kg 58.97 kg 03/19/2025 Height 64 in 03/19/2025 Blood pressure systolic 141 mm Hg 03/19/2025 Weight 130 lbs 03/19/2025 BMI 22.31 kg/m2 03/19/2025 Encounters Encounter Location Date Provider Diagnosis [facility] [address] [place] [address] 10/02/2024 ALONSO COCKAYNE Nail dystrophy L60.3 ; Other specified peripheral vascular diseases I73.89 and Tinea unguium B35.[address] [address] 01/01/2025 ALONSO COCKAYNE Nail dystrophy L60.3 ; Other specified peripheral vascular diseases I73.89 and Tinea unguium B35.[address] [address] 03/19/2025 ALONSO COCKAYNE Nail dystrophy L60.3 ; Other specified peripheral vascular diseases I73.89 and Tinea unguium B35.1 Assessments Encounter Date Diagnosis (ICD Code) Assessment Notes Treatment Notes Treatment Clinical Notes Section Notes 10/02/2024 Nail dystrophy (ICD-10 - L60.3) 01/01/2025 Nail dystrophy (ICD-10 - L60.3) 03/19/2025 Nail dystrophy (ICD-10 - L60.3) 03/19/2025 Other specified peripheral vascular diseases (ICD-10 - [...] the nail by use of a sharp paper tube cutter and/or rotary instrument. Reason for debridement [...] was applied. Debrided 2 nails without incident. 10/02/2024 Other specified peripheral vascular diseases (ICD-10 [...] the nail by use of a sharp paper tube cutter and/or rotary instrument. Reason for debridement [...] the nail by use of a sharp paper tube cutter and/or rotary instrument. Reason for debridement [...] was applied. Debrided 2 nails without incident. 03/19/2025 Tinea unguium (ICD-10 - B35.1) 01/01/2025 Tinea unguium (ICD-10 - B35.1) 10/02/2024 Tinea unguium (ICD-10 - B35.1) Plan Of Treatment Next Appt Details Provider Name:ALONSO Wild LEONG, 08/20/2025 03:15:00 PM, [address] [place], [address], Insurance Providers Payer Name Payer Address Payer Phone Subscriber Number Group Number Insured Name Patient Relationship to Insured Coverage Start Date Coverage End Date [facility] [employer]TE [employer]URE [address] [address] [place] [address] [id number] HUNG BOYKIN Self - patient is the insured 3 [place] DEPT OF [place] A[place] [address] [address] [place] [address] [id number] HUNG BOYKIN Self - patient is the insured
--- OUTSIDE RECORDS SUMMARY | 2025-07-03 09:07 | XMS_ITS | Patient Health Record ---
Author Organization [facility] Address [address] [place], [place] [id number] Care Team Providers Care Pressurization Mechanic Name Role Phone Long Flores Unavailable Unavailable Reason For Referral No Information Social History Social History Additional Details Category Social Info Options Details Migrated Social History Migrated Social History History of tobacco use : Current everyday tobacco user , Alcohol intake : , Smoking Status : Current everyday tobacco user Plan Of Treatment No Information Insurance Providers Payer Name Payer Address Payer Phone Subscriber Number Group Number Insured Name Patient Relationship to Insured Coverage Start Date Coverage End Date Medicare Part B [place] [address] [facility] [phone] [id number] HUNG BOYKIN Self - patient is the insured
== END 2025-07-03 08:54 | disposition home or self-care (01) ==
LOC: CHSIMG 08:55
PROVIDERS: PCP Family Medicine; Visit Provider Family Medicine
DX: Z78.0 Asymptomatic menopausal state (principal); M85.89 Other specified disorders of bone density and structure, multiple sites
CPT/HCPCS: 77080